=== PATIENT | female | born 1970 | race Caucasian/White ===

== ENCOUNTER 2017-10-22 12:41 | Emergency (ER) | payer SELFPAY ==
[~2017-10-22] VITALS: Ht 167.6 cm; Wt 86.0 kg
[~2017-10-22 12:41] MED LIST: ALBUTEROL S2.5 MG/.5 IN; AMOXICILLIN500 MG OR; AMOXICILLIN500 MG PO; CEPHALEXIN500 MG PO; CIPRO500 MG OR; CIPROFLOXACN500 MG PO; FLEXERIL OR; FLEXERIL10 MG PO; FLEXERIL5 MG PO; LORTAB 5 OR; MEDDOSEPAK OR; MEDDOSEPAK PO; MULTI VITAMIN; NAPROSYN375 MG PO; NAPROSYN500 MG OR; NAPROSYN500 MG PO; NO; NO HOME MEDS; NO MEDS; PREVACID30 M2 OR; PROAIR HFA IN; PROVENTIL HFA IN; ROBITUSS12 OR; ROBITUSSIN AC10 ML PO; ROBITUSSIN200 MG/10 PO; TORADOL PO; TRAMADOL HCL50 MG OR; ULTRAM50 M1 OR; ULTRAM50 M1 PO; VENTOLIN HFA IN; VENTOLIN HFA PO; ZOFRAN ODT8 MG SL; ZPAK PO
[2017-10-22 12:47] VITALS: BP 115/70
== END 2017-10-22 13:51 | disposition left against medical advice (07) | DRG 951 ==
LOC: ED 12:41 → LWOBS 13:50 → ED 13:51
DX: Z91.19 Patient's noncompliance with other medical treatment and regimen (principal)

== ENCOUNTER 2018-01-23 15:58 | Emergency (ER) | payer SELFPAY ==
[~2018-01-23] VITALS: Ht 167.6 cm; Wt 72.3 kg
[2018-01-23 16:35] LABS: HEMATOCRIT 40.7 % (37.0-47.0); HEMOGLOBIN 13.3 g/dl (12.0-16.0); IMMATURE GRANULOCYTES 0.2 % (0.0-1.0); MEAN CELL VOLUME 96.7 fL CALC (80.0-100.0); MEAN CORPUSCULAR HGB 31.6 pG CALC (26.0-32.0); MEAN CORPUSCULAR HGB CONC 32.7 g/L CALC (32.0-36.0); NEUT# 5.13 thou/uL (2.00-7.15); RED BLOOD COUNT 4.21 mill/uL (4.20-5.60); RED CELL DISTRI WIDTH 14.7 % (11.5-15.5)
[2018-01-23 16:58] LABS: INFLUENZA A NONE DETECTED (NONE DETECT); INFLUENZA B NONE DETECTED (NONE DETECT)
[2018-01-23] MEDS ORDERED: VENTOLIN HFA IN (17:09)
[2018-01-23] MEDS ORDERED: PREDNISONE10 MG PO (17:09)
[2018-01-23 17:17] VITALS: BP 132/75
== END 2018-01-23 17:21 | disposition home or self-care (01) | DRG 781 ==
LOC: ED 15:58
PROVIDERS: Family Medicine
DX: O26.891 Other specified pregnancy related conditions, first trimester (principal); J44.1 Chronic obstructive pulmonary disease with (acute) exacerbation; Z3A.08 8 weeks gestation of pregnancy; F17.200 Nicotine dependence, unspecified, uncomplicated; R06.02 Shortness of breath; R05 Cough; R07.9 Chest pain, unspecified

== ENCOUNTER 2018-06-07 06:51 | Emergency (ER) | payer SELFPAY ==
[~2018-06-07] VITALS: Ht 167.6 cm; Wt 70.4 kg
[~2018-06-07 06:51] MED LIST changes: +PREDNISONE10 MG PO
[2018-06-07 07:32] LABS: HEMATOCRIT 42.2 % (37.0-47.0); HEMOGLOBIN 14.2 g/dl (12.0-16.0); IMMATURE GRANULOCYTES 0.3 % (0.0-5.0); MEAN CELL VOLUME 96.1 fL CALC (80.0-100.0); MEAN CORPUSCULAR HGB 32.3 pG CALC (26.0-32.0); MEAN CORPUSCULAR HGB CONC 33.6 g/L CALC (32.0-36.0); NEUT# 5.37 thou/uL (2.00-7.15); RED BLOOD COUNT 4.39 mill/uL (4.20-5.60); RED CELL DISTRI WIDTH 14.3 % (11.5-15.5)
[2018-06-07 07:47] LABS: ALBUMIN 4.2 g/dL (3.2-5.0); ANION GAP 15 (6-22 (CALC)); BILIRUBIN, TOTAL 0.5 mg/dL (0.0-1.4); BUN 10 mg/dL (7-17); BUN/CREATININE RATIO 16 (12-20 (CALC)); CARBON DIOXIDE 25 mmol/l (22-30); CHLORIDE 104 mmol/l (95-108); CREATININE 0.6 mg/dL (0.5-1.0); GFR > 60 ML/MIN (>=60 (CALC)); GFR FOR AFR.AMER. > 60 ML/MIN (>=60 (CALC)); POTASSIUM 4.3 mmol/l (3.5-5.1); SGOT/AST 22 u/l (14-36); SGPT/ALT 26 u/l (9-52); SODIUM 140 mmol/l (137-146); TOTAL PROTEIN 7.2 g/dL (6.3-8.2)
[2018-06-07 07:51] LABS: ALKALINE PHOSPHATASE 68 u/l (38-126)
[2018-06-07 08:50] LABS: COCAINE POSITIVE (NEGATIVE)
[2018-06-07 08:51] LABS: BARBITURATES NEGATIVE (NEGATIVE); METHADONE NEGATIVE (NEGATIVE); OXCYCODONE NEGATIVE (NEGATIVE); TETRAHYDROCANNABIONOL NEGATIVE (NEGATIVE); TRICYLIC ANTIDEPRESSANTS NEGATIVE (NEGATIVE)
[2018-06-07] MEDS ORDERED: ZITHROMAX250 MG PO (08:59)
[2018-06-07] MEDS ORDERED: PROVENTIL HFA IN (08:59)
[2018-06-07] MEDS ORDERED: TORADOL PO (08:59)
[2018-06-07 09:18] VITALS: BP 118/68
== END 2018-06-07 09:18 | disposition home or self-care (01) | DRG 203 ==
LOC: ED 06:51
PROVIDERS: Emergency Medicine
DX: J40 Bronchitis, not specified as acute or chronic (principal); F17.290 Nicotine dependence, other tobacco product, uncomplicated; R09.1 Pleurisy; R05 Cough; R06.02 Shortness of breath

== ENCOUNTER 2018-09-08 13:05 | Inpatient (IN) | payer SELFPAY ==
[~2018-09-08] VITALS: Ht 167.6 cm; Wt 68.0 kg
[~2018-09-08 13:05] MED LIST changes: +ZITHROMAX250 MG PO
--- NOTE | 2018-09-08 13:16 | NUR ---
PT TO ROOM PER EMS
--- NOTE | 2018-09-08 13:40 | NUR ---
NITRO DRIP IN PROGRESS BP 103/71
[2018-09-08 13:49] LABS: HEMATOCRIT 43.1 % (37.0-47.0); IMMATURE GRANULOCYTES 0.3 % (0.0-5.0); MEAN CELL VOLUME 97.5 fL CALC (80.0-100.0); MEAN CORPUSCULAR HGB 31.7 pG CALC (26.0-32.0); MEAN CORPUSCULAR HGB CONC 32.5 g/L CALC (32.0-36.0); NEUT# 8.21 thou/uL (2.00-7.15); RED BLOOD COUNT 4.42 mill/uL (4.20-5.60); RED CELL DISTRI WIDTH 13.4 % (11.5-15.5)
--- NOTE | 2018-09-08 14:04 | NUR ---
MYRANDA CHAPPELL D/C'D PER .
[2018-09-08 14:36] LABS: ANION GAP 13 (6-22 (CALC)); BUN 16 mg/dL (7-17); BUN/CREATININE RATIO 26 (12-20 (CALC)); CARBON DIOXIDE 25 mmol/l (22-30); CHLORIDE 107 mmol/l (95-108); CREATININE 0.6 mg/dL (0.5-1.0); GFR > 60 ML/MIN (>=60 (CALC)); GFR FOR AFR.AMER. > 60 ML/MIN (>=60 (CALC)); POTASSIUM 4.2 mmol/l (3.5-5.1); SODIUM 140 mmol/l (137-146)
--- NOTE | 2018-09-08 15:03 | NUR ---
PT TO RADIOLOGY FOR CTA. ADVISED OF CURRENT POC.
[2018-09-08 15:25] LABS: INFLUENZA A NONE DETECTED (NONE DETECT); INFLUENZA B NONE DETECTED (NONE DETECT)
--- NOTE | 2018-09-08 15:28 | NUR ---
PT RETURNED FROM CT. ADVISED OF WAIT TIME. CONTINUE W/LOOSE CONGESTED COUGH. UV IV SITES HEALTHY. IV ABT CONTINUES.
--- NOTE | 2018-09-08 16:02 | NUR ---
SBAR PRINTED TO FLOOR
--- NOTE | 2018-09-08 16:10 | NUR ---
PT AWARE OF PENDING ADMIT TO MEDSURG. IV SITES HEALTHY. FLUSH EASILY. LOOSE PRODUCTIVE COUGH. AFEBRILE.
--- NOTE | 2018-09-08 16:31 | NUR ---
REPORT PROVIDED TO PACO ROSENBERG. ADVISED OF ALL MEDS, IV'S, HX AND PLAN OF CARE.
--- NOTE | 2018-09-08 16:43 | NUR ---
PT TO ROOM 279 VIA STRETCHER ON TELEMETRY VIA STRETCHER. IV SITES HEALTHY. NO APPARENT DISTRESS.
[2018-09-08 17:18] VITALS: BP 107/69
--- NOTE | 2018-09-08 18:03 | NUR ---
REPORT RECEIVED FROM GOPAL IN ED, PT ARRIVED ON UNIT VIA STRETCHER @ 1656, ALERT AND ORIENTED X 4, TRANSFERRED TO BED, C/O HEAD AND NECK ACHING PAIN @ 10/10, ORIENTED TO ROOM AND CALL TELLEZ, BROUGHT IN MEDICATION (NAPROXEN) BUT SAID SHE WILL SEND IT HOME WITH FAMILY AFTER SHE WAS INFORMED OF HOSPITAL'S POLICY CONCERNING HOME MEDS, ALL NEEDS/CONCERNS ADDRESSED. DR BARRIGA ROUNDED, DISCUSSED PLAN OF CARE WITH PT AND WROTE ORDERS, WILL CONTINUE TO MONITOR.
[2018-09-08 19:15] VITALS: BP 116/82
--- NOTE | 2018-09-08 20:49 | NUR ---
REPORT RECIEVED FROM OFFGOING NURSE. PT SITTING N BED WATCHING TV. DENIES PAIN. EXPLAINED THAT TROPONIN WILL BE DRAWN Q6 X3. PT VOICED UNDERSTANDING. BED IN LOW POSITON. CALL LIGHT WITHIN REACH.
[2018-09-09 00:39] VITALS: BP 100/66
--- NOTE | 2018-09-09 03:25 | NUR ---
PT RESTING IN BED. EYES CLOSED. NO SIGNS OF DISTRESS NOTED. BED IN LOWEST POSITION. CALL LIGHT WITHIN REACH.
[2018-09-09 04:00] VITALS: BP 113/71
[2018-09-09 05:32] LABS: IMMATURE GRANULOCYTES 0.3 % (0.0-5.0); MEAN CELL VOLUME 97.3 fL CALC (80.0-100.0); MEAN CORPUSCULAR HGB 31.6 pG CALC (26.0-32.0); MEAN CORPUSCULAR HGB CONC 32.5 g/L CALC (32.0-36.0); RED BLOOD COUNT 4.11 mill/uL (4.20-5.60); RED CELL DISTRI WIDTH 13.2 % (11.5-15.5)
[2018-09-09 05:43] LABS: ALBUMIN 3.6 g/dL (3.2-5.0); ALKALINE PHOSPHATASE 60 u/l (38-126); ANION GAP 15 (6-22 (CALC)); BILIRUBIN, TOTAL 0.2 mg/dL (0.0-1.4); BUN 14 mg/dL (7-17); BUN/CREATININE RATIO 29 (12-20 (CALC)); CARBON DIOXIDE 22 mmol/l (22-30); CHLORIDE 109 mmol/l (95-108); CREATININE 0.5 mg/dL (0.5-1.0); GFR > 60 ML/MIN (>=60 (CALC)); GFR FOR AFR.AMER. > 60 ML/MIN (>=60 (CALC)); MAGNESIUM 2.1 mg/dL (1.6-2.3); POTASSIUM 4.2 mmol/l (3.5-5.1); SGOT/AST 15 u/l (14-36); SODIUM 142 mmol/l (137-146); TOTAL PROTEIN 6.7 g/dL (6.3-8.2)
[2018-09-09 05:47] LABS: CHOLESTEROL HDL RATIO 2.8 (<4.4 (CALC))
[2018-09-09 06:02] LABS: PLATELET COUNT 307 thou/uL (130-400)
[2018-09-09 06:03] LABS: BAND 2 % (0-8); MANUAL DIFFERENTIAL YES
[2018-09-09 06:05] LABS: PLATELET ESTIMATE NORMAL
[2018-09-09 06:12] LABS: URINE BILIRUBIN - DIPSTICK NEGATIVE (NEGATIVE); URINE BLOOD DIPSTICK NEGATIVE (NEGATIVE); URINE CLARITY CLEAR; URINE COLOR YELLOW; URINE GLUCOSE - DIPSTICK 250 mg/dL (NEGATIVE); URINE KETONE NEGATIVE (NEGATIVE); URINE LEUK ESTERASE NEGATIVE (Negative); URINE NITRITE - DIPSTICK NEGATIVE (Negative); URINE PROTEIN - DIPSTICK TRACE mg/dL (NEG-TRACE); URINE SPECIFIC GRAVITY >=1.030; URINE UROBILINOGEN - DIPSTICK 0.2 E.U./dL (0.2)
[2018-09-09 07:35] VITALS: BP 113/56
--- NOTE | 2018-09-09 07:35 | NUR ---
ASSESSMENT IS COMPLETED: IV SITE IS FREE FROM REDNESS OR EDEMA. HR IS REG,PULSES ARE STRONG X4, ABD IS SOFT WITH ACTIVE BS. BREATH SOUNDS ARE WHEEZIGN AND COARSE. O2 @ 2LITERS WITH NC, TELE MONITOR IN PLACE, CALL TELLEZ WITH IN REACH,
--- NOTE | 2018-09-09 09:38 | NUR ---
PT C/O AVING DIARRHEA FOR 4 DAYS .
[2018-09-09 11:10] VITALS: BP 103/59
--- NOTE | 2018-09-09 11:36 | NUR ---
PT HAD A BM, LOOSE ALSO FOOD PARTICLES. SENDING DOWN TO LAB FOR TESTING.
--- NOTE | 2018-09-09 12:15 | NUR ---
PT IS RELAXING IN BED CONTINUED TO C/O HEADACHE. IV SITE IS FREE FROM REDNESS OR EDEMA. CONTINUE TO OBSERVE AND MONITOR.
[2018-09-09 13:30] LABS: C. DIFFICILE TOXIN A&B NEGATIVE (NEGATIVE)
--- NOTE | 2018-09-09 16:03 | NUR ---
PT IS RELAXING IN BED WITH NO DISTRESS NOTED, IV SITE IS FREE FROM REDNESS OR EDEMA.
[2018-09-09 16:20] VITALS: BP 105/61
--- NOTE | 2018-09-09 17:30 | NUR ---
IV SITE BECAME A LITTLE PUFFY, DISCONTINUED ATTEMPTED TO USE THE IV ON THE LEFT IT BECAME PUFFY HAD Catherine PLATT RN COME AN RESTART IN RAC WITH # 20. PT TOLERATED WELL
--- NOTE | 2018-09-09 19:45 | NUR ---
PATIENT RESTING IN BED WITH O2 VIA NASAL CANNULA IN PLACE AT 2LPM. AWAKE ALERT AND ORIENTEDX3. IV SITE TO RAC INTACT AND IS HEALTHY AT THIS TIME. TELE MONITOR IN PLACE. PATIENT TO RADIOLOGY VIA WHEELCHAIR FOR ECHO. WILL CONT TO MONITOR.
[2018-09-09 19:51] VITALS: BP 104/62
--- NOTE | 2018-09-09 21:00 | NUR ---
PATIENT RETURNED FROM ECHO VIA WHEELCHAIR AND ASSISTED TO THE BED. PATIENT WITH O2 VIA NASAL CANNULA IN PLACE. TELE MONITOR IN PLACE. IV SITE TO RIGHT AC INTACT-SITE IS HEALTHY AT THIS TIME. PATIENT MEDICATED FOR HEADACHE-10/10 ON PAIN SCALE WITH DILAUDID 2MG PO ORDERED. MEDICATED FOR NAUSEA WITH PHENERGAN 25MG IVP. SAFETY PRECAUTIONS REINFORCED. CALL LIGHT IN REACH. WILL CONT TO MONITOR.
--- NOTE | 2018-09-09 22:52 | NUR ---
NEB TX NOT GIVEN DUE TO INCREASED HR. IN NO APPARENT DISTRESS.
--- NOTE | 2018-09-09 23:29 | NUR ---
PATIENT APPEARS SLEEPING AT THIS TIME WITH O2 VIA NASAL CANNULA IN PLACE. TELE MONITOR IN PLACE. CALL LIGHT IN REACH. WILL CONT TO MONITOR.
[2018-09-10] VITALS (18 sets, daily range): BP systolic 90–118; BP diastolic 58–82
--- NOTE | 2018-09-10 04:00 | NUR ---
PATIENT RESTING IN BED WITH O2 VIA NASAL CANNULA IN PLACE. TELE MONITOR IN PLACE. SALINE TO RAC INTACT. NO COMPLAINTS AT THIS TIME. AM LABS WERE DRAWN. CALL LIGHT IN REACH. WILL CONT TO MONITOR.
[2018-09-10 05:20] LABS: HEMATOCRIT 36.5 % (37.0-47.0); IMMATURE GRANULOCYTES 0.6 % (0.0-5.0); MEAN CELL VOLUME 97.9 fL CALC (80.0-100.0); MEAN CORPUSCULAR HGB 32.2 pG CALC (26.0-32.0); MEAN CORPUSCULAR HGB CONC 32.9 g/L CALC (32.0-36.0); NEUT# 18.04 thou/uL (2.00-7.15); RED BLOOD COUNT 3.73 mill/uL (4.20-5.60); RED CELL DISTRI WIDTH 13.5 % (11.5-15.5)
[2018-09-10 05:30] LABS: ALBUMIN 3.3 g/dL (3.2-5.0); ALKALINE PHOSPHATASE 63 u/l (38-126); ANION GAP 11 (6-22 (CALC)); BILIRUBIN, TOTAL 0.2 mg/dL (0.0-1.4); BUN 11 mg/dL (7-17); BUN/CREATININE RATIO 25 (12-20 (CALC)); CARBON DIOXIDE 26 mmol/l (22-30); CHLORIDE 110 mmol/l (95-108); CREATININE 0.4 mg/dL (0.5-1.0); GFR > 60 ML/MIN (>=60 (CALC)); GFR FOR AFR.AMER. > 60 ML/MIN (>=60 (CALC)); MAGNESIUM 2.2 mg/dL (1.6-2.3); POTASSIUM 4.5 mmol/l (3.5-5.1); SGOT/AST 15 u/l (14-36); SODIUM 142 mmol/l (137-146); TOTAL PROTEIN 6.1 g/dL (6.3-8.2)
--- NOTE | 2018-09-10 07:10 | NUR ---
PT REPORT RECIEVED FROM PACO MORAN. PT SLEEPING IN BED. NO S/S OF DISTRESS. CALL LIGHT IN REACH. WILL CONTINUE TO MONITOR
--- NOTE | 2018-09-10 07:15 | NUR ---
PT REPORT RECIEVED FROM PACO MORAN. PT SLEEPING AT THIS TIME. NO S/S OF DISTRESS. CALL LIGHT IN REACH. WILL CONTINUE TO MONITOR
--- NOTE | 2018-09-10 08:36 | NUR ---
PT ASSESSMENT COMPLETE. A/O X3. SPEECH IS CLEAR. PRODUCTIVE COUGH NOTED. THICK OLIVERA SPUTUM. RESP EVEN AND UNLABORED LUNG SOUNDS DIMINISHED. TELE IN PLACE. PT C/O HEADACHE 8 OUT OF 10. AND CHEST PRESSURE. MEDICATED W/ 2 MG DILAUDID PO. PT ALSO COMPLAINS OF NAUSEA BUT REFUSES PHENERGAN PRESCRIBED. RELAXTION TECHNIQUES IN PLACE. BOWEL SOUNDS ACTIVE X4. STRONG RADIAL AND PEDAL PULSES.#20 RAC SL. FLUSHED AND PATENT. SITE APPEARS HEALTHY. POC DISCUSSED. SAFETY PRECAUTIONS IN PLACE. CALL LIGHT IN REACH. WILL CONTINUE TO MONITOR
--- NOTE | 2018-09-10 14:38 | NUR ---
PT C/O HEADACHE 10 OUT OF 10 ON PAIN SCALE. MEDICATED W/ 2MG DILAUDID PO. RELAXATION TECHNIQUES IN PLACE. CALL LIGHT IN REACH. WILL CONTINUE TO MONITOR
--- NOTE | 2018-09-10 15:13 | NUR ---
PT STATES HEADACHE HAS DECREASED TO A 8 OUT OF 10 ON PAIN SCALE. PT DENIES ANY FURTHER PAIN. RESP EVEN AND UNLABORED. TELE IN PLACE. CALL LIGHT IN REACH. WILL CONTINUE TO MONITOR
--- NOTE | 2018-09-10 19:00 | NUR ---
PT TO ICU BED 2 VIA BED FOR NEW ONSET AFIB. PT IS ALERT AND ORIENTED X3. SHIFT ASSESSMENT COMPLETED AT THIS TIME. IV PATENT X1. #22 PLACED IN LFA X1 ATTEMPT. PT TOLERATED WELL. PLAN OF CARE REVIEWED WITH PATIENT. PT NERVOUS AND STATES THAT SHE IS NAUSEATED. PHENERGAN GIVEN PER MAR. ORIENTED TO ROOM AND UNIT. CALL LIGHT IN REACH. WILL CONTINUE TO MONITOR.
--- NOTE | 2018-09-10 19:12 | NUR ---
NOTIFIED BY ED OF PT HR IN 170'S. STAT EKG ORDERED. PT. AFIB SUSTAINED IN 150'S. DR. ISRAEL NOTIFIED. ORDER FOR TRANSFER TO ICU, START LOADING DOSE AND GTT OF AMIODARONE IV. PT TRANSFERED TO ICU BED 2 VIA BED. REPORT GIVEN TO PACO METZ.
--- NOTE | 2018-09-10 20:35 | NUR ---
DR BARRIGA CALLED FOR AN UPDATE ON PATIENT. UPDATE PROVIDED. NEW ORDERS RECEIVED. DISUCSSED CAHNGES WITH PATIENT. PATIENT VERBALIZED UNDERSTANDING.
--- NOTE | 2018-09-10 20:46 | NUR ---
PT MEDICATED WITH HS MEDS PER JAN AND PRN DILAUDID PER JAN FOR HEADACHE. WILL CONTINUE TO MONITOR.
--- NOTE | 2018-09-10 21:05 | NUR ---
NOTIFIED DR BARRIGA OF HX OF COCAINE USE AND THAT PT STATES THAT SHE HAS NOT USED IN OVER A YEAR
--- NOTE | 2018-09-10 21:16 | NUR ---
NEB TX NOT GIVEN DUE TO INCREASED HR.
--- NOTE | 2018-09-10 21:30 | NUR ---
radiology into room to complete portable cxr
--- NOTE | 2018-09-10 22:08 | NUR ---
PT RESTING IN BED WITH EYES CLOSED. RESP ARE EVEN AND UNLABORED. NO DISTRESS NOTED. PT REMAINS AFIB RATE 100-130S. CALL LIGHT IN REACH. WILL CONTINUE TO MONITOR.
--- NOTE | 2018-09-10 23:02 | NUR ---
PT REQUESTED A SNACK. PT DENIES N/V AT THIS TIME. SNACK PROVIDED. WILL CONTINUE TO MONITOR.
[2018-09-11] VITALS (23 sets, daily range): BP systolic 79–121; BP diastolic 53–88
--- NOTE | 2018-09-11 00:24 | NUR ---
PT RESTING IN BED WITH EYES CLOSED. RESP ARE EVEN AND UNLABORED. NO DISTRESS NOTED. CALL LIGHT IN REACH. WILL CONTINUE TO MONITOR.
--- NOTE | 2018-09-11 02:19 | NUR ---
PT RESTING IN BED WITH EYES CLOSED. RESP ARE EVEN AND UNLABORED. NO DISTRESS NTOED. CALL LIGHT IN REACH. WILL CONTINUE TOMONTIOR
--- NOTE | 2018-09-11 03:50 | NUR ---
PT RESTING IN BED WITH EYES CLOSED. RESP ARE EVEN AND UNLABORED. NO DISTRESS NOTED. CALL LIGHT IN REACH. WILL CONTINUE TO MONITOR.
--- NOTE | 2018-09-11 04:36 | NUR ---
SMASH PIECER INTO DRAW AM LABS
--- NOTE | 2018-09-11 05:00 | NUR ---
PT UP TO BSC TO VOID AND THEN ASSISTED BACK TO BED. PT VOIDED 200CC OF DARK FOUL SMELLING URINE. PT ASSISTED BACK TO BED. CALL LIGHT IN REACH. WILL CONTINUE TO MONITOR.
[2018-09-11 05:13] LABS: HEMATOCRIT 37.1 % (37.0-47.0); HEMOGLOBIN 11.9 g/dl (12.0-16.0); IMMATURE GRANULOCYTES 0.7 % (0.0-5.0); MEAN CELL VOLUME 99.5 fL CALC (80.0-100.0); MEAN CORPUSCULAR HGB 31.9 pG CALC (26.0-32.0); MEAN CORPUSCULAR HGB CONC 32.1 g/L CALC (32.0-36.0); NEUT# 14.53 thou/uL (2.00-7.15); RED BLOOD COUNT 3.73 mill/uL (4.20-5.60); RED CELL DISTRI WIDTH 13.8 % (11.5-15.5)
[2018-09-11 05:37] LABS: ALBUMIN 3.2 g/dL (3.2-5.0); ALKALINE PHOSPHATASE 53 u/l (38-126); ANION GAP 10 (6-22 (CALC)); BUN 15 mg/dL (7-17); BUN/CREATININE RATIO 29 (12-20 (CALC)); CARBON DIOXIDE 26 mmol/l (22-30); CHLORIDE 112 mmol/l (95-108); CREATININE 0.5 mg/dL (0.5-1.0); GFR > 60 ML/MIN (>=60 (CALC)); GFR FOR AFR.AMER. > 60 ML/MIN (>=60 (CALC)); MAGNESIUM 2.3 mg/dL (1.6-2.3); POTASSIUM 4.6 mmol/l (3.5-5.1); SODIUM 144 mmol/l (137-146); TOTAL PROTEIN 5.8 g/dL (6.3-8.2)
[2018-09-11 05:44] LABS: SGOT/AST 67 u/l (14-36)
--- NOTE | 2018-09-11 05:58 | NUR ---
RT INTO GIVE AM NEB TREATMENT. AM MEDICATIONS GIVEN. MEDICATED WITH DILAUDID FOR HEADACHED. CALL LIGHT IN REACH. WILL CONTINUE TO MONITOR.
--- NOTE | 2018-09-11 08:13 | NUR ---
PT SEEN AWAKE, ALERT, ORIENTED X 3. AMIODARONE DRIP CONTINUES AT 16.5 ML/HR BUT PT REMAINS IN AFIB WITH RATE OF 80-110. LUNGS CLEAR BUT DIMINISHED. SKIN INTACT. NO DISTRESS NOTED.
--- NOTE | 2018-09-11 12:00 | NUR ---
NOTIFIED PT OF FAMILY MEMBER "Rafia" CALLED WANTING PT TO CALL HER BACK. UPON ENTERING THE ROOM, PT ASKED WHY HER MONITORING EQUIPMENT WAS BEEPING, I INFORMED HER THAT HER B/P CUFF WAS NOT INFLATING PROPERLY. PT THEN STATED SHE HAD STABBING CHEST PAIN. HR-122, B/P 121/88. 1201:RT NOTIFIED FOR STAT EKG.
--- NOTE | 2018-09-11 12:05 | NUR ---
DR. BARRIGA NOTIFIED OF PT COMPLAINTS. NEW ORDERS RECIEVED FOR NITRO Q 5MIN X 3, SUBLINGUAL, PRN AND STAT TROPONIN, LAB NOTIFIED.
--- NOTE | 2018-09-11 12:06 | NUR ---
RT AT BEDSIDE FOR EKG.
--- NOTE | 2018-09-11 12:20 | NUR ---
LAB AT BEDSIDE FOR TROPONIN LEVEL.
--- NOTE | 2018-09-11 13:30 | NUR ---
PT REPORTS HEADACHE PAIN, FOR WHICH SHE RECEIVED DILAUDID 2 MG PO. PAIN HAS COME DOWN TO AN 8, EARLIER 10. NO FURTHER COMPLAINTS OF CHEST DISCOMFORT.
--- NOTE | 2018-09-11 16:11 | NUR ---
PT SEEN BY DR FINK THIS AFTERNOON, NEW ORDERS RECEIVED. PT CONTINUES IN AFIB, HAS BEEN GIVEN LOPRESSOR. AMIODARONE CONTINUES UNTIL 1900. PT CONTINUES TO HAVE CHEST PRESSURE, WHICH HAS BEEN TRUE INTERMITTENTLY.
--- NOTE | 2018-09-11 18:10 | NUR ---
AMIODARONE DRIP STOPPED PER LOW BP IN THE 80s SYSTOLIC. MED WAS DUE TO BE STOPPED IN 2 HOURS ANYWAY, HAVING REACHED 24 HOUR ADMINISTRATION GIANCARLO. BP NOW 113/76.
--- NOTE | 2018-09-11 18:51 | NUR ---
PT PROVIDED DILAUDID PO FOR WHAT SHE SAYS IS CHEST PAIN THAT IMMEDIATELY CAUSES HER TO HAVE HEADACHE. VSS, UNKNOWN ETIOLOGY.
--- NOTE | 2018-09-11 19:00 | NUR ---
REPORT FROM PACO BARBOUR. ASSUMED PT. CARE.
--- NOTE | 2018-09-11 19:30 | NUR ---
ZITHROMAX COMPLETE AT THIS TIME. NO REACTIONS NOTED. IV FLUSHED.
--- NOTE | 2018-09-11 20:10 | NUR ---
PT. STABLE. AWAKE, ALERT, ORIENTED X 3. SKIN WARM AND DRY. AFEBRILE. BOWEL SOUNDS PRESENT IN ALL QUADS. C/O 8/10 NECK/HEAD PAIN. PT. STATES WITH HX OF CHRONIC NECK PROBLEMS. ASKING IF ITS TIME FOR HER DILAUDID AGAIN. PT. INFORMED IT'S EVERY 6 HOURS AND SHE HAD THE MED AT 18:30. UPDATED THAT SHE COULD NOT HAVE IT AGAIN UNTIL PAST MIDNIGHT. IBARRA. ELIZABETH. DIMINISHED TO BASES BILAT. SLIGHTLY DIMINISHED TO UPPERS BILAT. A-FIB RATE IN THE 90-120'S. WILL MONITOR FOR NEEDED PUSH ADMINISTRATION ORDERED. NO DISTRESS. SITTING UP IN BED, EVEN AND UNLABORED RESPS.
--- NOTE | 2018-09-11 21:30 | NUR ---
PT. ASSISTED TO BSC. PT. TOLERATED WELL. PT. MEDICATED FOR PAIN AND WITH HS MEDICATIONS FOR BP/AGGITATION PER PHYSICIAN ORDERS. WILL CONTINUE TO ASSESS FOR MEDICATION EFFECTIVENESS.
--- NOTE | 2018-09-11 23:22 | NUR ---
PT. RESTING IN BED IN NO DISTRESS. RESPS REMAIN EVEN AND UNLABORED. HR REMAINS A-FIB IN THE 80-120'S. PT. STATES HER PAIN LEVEL IN NOW 05/14. DENIES OTHER NEEDS. WILL CONTINUE TO MONITOR.
[2018-09-12] VITALS (17 sets, daily range): BP systolic 95–142; BP diastolic 54–89
--- NOTE | 2018-09-12 00:42 | NUR ---
PT. RESTING ON LT. SIDE IN NO DISTRESS. RESPS EVEN AND UNLABORED. EYES CLOSED. PT. REMAINS IN A-FIB WITH RATE IN THE 80-110'S. BP STABLE.
--- NOTE | 2018-09-12 02:26 | NUR ---
PT. CONTINUES TO REST IN BED IN NO DISTRESS. BP/HR REMAINS STABLE. PT. REMAINS IN A-FIB NO DISTRESS. CALL LIGHT REMAINS WITHIN REACH. WILL CONTINUE TO MONITOR.
--- NOTE | 2018-09-12 03:50 | NUR ---
LAB AT BEDSIDE AT THIS TIME. PT. REMAINS EASILY AROUSABLE. ALERT, ORIENTED X 3. PT. STATES PAIN IS CONTROLLED AT THIS TIME. STATES 6/, DENIES NEED FOR PAIN MEDS. PT. REMAINS IN A-FIB, RATE CONTROLLED BETWEEN 68-100. RT. AC LINE DISCONTINUED AT THIS TIME IT WAS FOUND DISLODGED. BANDAGE APPLIED.
[2018-09-12 04:04] LABS: HEMATOCRIT 36.6 % (37.0-47.0); HEMOGLOBIN 11.7 g/dl (12.0-16.0); IMMATURE GRANULOCYTES 1.4 % (0.0-5.0); MEAN CELL VOLUME 100.3 fL CALC (80.0-100.0); MEAN CORPUSCULAR HGB 32.1 pG CALC (26.0-32.0); NEUT# 12.24 thou/uL (2.00-7.15); RED BLOOD COUNT 3.65 mill/uL (4.20-5.60); RED CELL DISTRI WIDTH 13.9 % (11.5-15.5)
[2018-09-12 04:11] LABS: ALKALINE PHOSPHATASE 52 u/l (38-126); ANION GAP 10 (6-22 (CALC)); BUN 20 mg/dL (7-17); BUN/CREATININE RATIO 28 (12-20 (CALC)); CARBON DIOXIDE 25 mmol/l (22-30); CHLORIDE 112 mmol/l (95-108); CREATININE 0.7 mg/dL (0.5-1.0); GFR > 60 ML/MIN (>=60 (CALC)); GFR FOR AFR.AMER. > 60 ML/MIN (>=60 (CALC)); MAGNESIUM 2.2 mg/dL (1.6-2.3); POTASSIUM 4.7 mmol/l (3.5-5.1); SGOT/AST 32 u/l (14-36); SODIUM 142 mmol/l (137-146); TOTAL PROTEIN 5.7 g/dL (6.3-8.2)
--- NOTE | 2018-09-12 05:07 | NUR ---
[place] WITH [place] [facility] [place] DENIES COMPLAINTS OF PAIN OR NEED. CALL LIGHT REMAINS WITH REACH. BP CUFF REPOSITIONED AT THIS TIME. WILL CONTINUE TO MONITOR.
--- NOTE | 2018-09-12 08:09 | NUR ---
PT SLEEPING UPON INITIAL INTERACTION, HR 80s, AFIB. PT MEDICATED RECENTLY FOR PAIN RELIEF. NO DISTRESS NOTED.
--- NOTE | 2018-09-12 11:06 | NUR ---
PT PROVIDED WITH TORADOL PER RETURN OF HEADACHE, 08/14. RHYTHM CONTINUES TO BE AFIB, RATE 87.
--- NOTE | 2018-09-12 11:18 | NUR ---
DR BARRIGA IN TO SEE PT AT THIS TIME. RHYTHM CHANGE NOTED, NOW SINUS 90. PT PROVIDES SPUTUM SPECIMEN FOR EVAL, SEEN BLACK.
--- NOTE | 2018-09-12 16:52 | NUR ---
PT ENJOYS VISITORS THIS AFTERNOON. PT HAS BEEN TAKEN TO MED/SURG WHERE SHE WAS ABLE TO SHOWER. PT REMAINS IN SINUS RHYTHM, 80s. AT BEDSIDE, GUEST TRAY ORDERED FOR HIM.
--- NOTE | 2018-09-12 18:50 | NUR ---
REPORT FROM PACO BARBOUR. ASSUMED PT. CARE.
--- NOTE | 2018-09-12 19:40 | NUR ---
PT. RESTING ON RT. SIDE IN NO DISTRESS. PT. EASILY AROUSABLE TO LIGHT VERBAL STIMULI. RESPS EVEN AND UNLABORED. SKIN WARM AND DRY. AFEBRILE. SIG OTHER AT BEDSIDE AT THIS TIME. PT. ALERT, ORIENTED X 3. PT. STATES WORK OF BREATHING HAS IMPROVED. REMAINS DIMINISHED/CLEAR TO UPPERS AND DIMINISHED TO BASES. PT. REPORTS NORMAL BM TODAY. BOWEL SOUNDS POSTIIVE IN ALL 4 QUADS. C/O 10/10 HEADACHE AT THIS TIME. PT. IN NSR AT THIS TIME IN THE 70-80'S. NO DISTRESS NOTED.
--- NOTE | 2018-09-12 22:07 | NUR ---
RT AT BEDSIDE TO ADMINISTER NEB TREATMENT. PT. REMAINS STABLE IN NSR. NO DISTRESS. SIG OTHER REMAINS AT BEDSIDE.
--- NOTE | 2018-09-12 22:29 | NUR ---
PT. PROVIDED WITH TURKEY SANDWICH, JELLO, AND ENSURE AT THIS TIME. PT. THANKFUL FOR ITEMS. WILL CONTINUE TO MONITOR.
[2018-09-13] VITALS (7 sets, daily range): BP systolic 122–141; BP diastolic 63–82
--- NOTE | 2018-09-13 00:19 | NUR ---
PT. RESTING IN BED IN NO DISTRESS. CALL LIGHT REMAINS WITHIN REACH. SIG OTHER PROVIDED WITH BLANKET PER REQUEST. REMAINS IN SR WITH RATE IN THE 80'S. WILL CONTINUE TO ASSESS.
--- NOTE | 2018-09-13 04:36 | NUR ---
PT. TO BSC. REMAINS IN NO DISTRESS AND IN NSR IN THE 70-80'S. AMBULATORY WITH STEADY GAIT. C/O 08/14 HEADACHE AT THIS TIME. MEDICATED PER PHYSICIAN ORDERS.
--- NOTE | 2018-09-13 05:51 | NUR ---
PT. RESTING IN BED IN NO DISTRESS. EASILY AROUSABLE TO LIGHT VERBAL STIMULI. REMAINS ORIENTED X 3. SKIN WARM AND DRY. PT. HR REMAINS CONTROLLED AND IN A-FIB.
[2018-09-13 06:01] LABS: HEMATOCRIT 36.9 % (37.0-47.0); MEAN CELL VOLUME 98.9 fL CALC (80.0-100.0); MEAN CORPUSCULAR HGB 32.2 pG CALC (26.0-32.0); MEAN CORPUSCULAR HGB CONC 32.5 g/L CALC (32.0-36.0); NEUT# 12.91 thou/uL (2.00-7.15); RED BLOOD COUNT 3.73 mill/uL (4.20-5.60); RED CELL DISTRI WIDTH 13.3 % (11.5-15.5)
[2018-09-13 06:11] LABS: ALBUMIN 3.1 g/dL (3.2-5.0); ALKALINE PHOSPHATASE 48 u/l (38-126); ANION GAP 11 (6-22 (CALC)); BILIRUBIN, TOTAL 0.1 mg/dL (0.0-1.4); BUN 24 mg/dL (7-17); BUN/CREATININE RATIO 40 (12-20 (CALC)); CARBON DIOXIDE 28 mmol/l (22-30); CHLORIDE 104 mmol/l (95-108); CREATININE 0.6 mg/dL (0.5-1.0); GFR > 60 ML/MIN (>=60 (CALC)); GFR FOR AFR.AMER. > 60 ML/MIN (>=60 (CALC)); POTASSIUM 4.8 mmol/l (3.5-5.1); SGOT/AST 21 u/l (14-36); SODIUM 139 mmol/l (137-146); TOTAL PROTEIN 5.8 g/dL (6.3-8.2)
--- NOTE | 2018-09-13 06:17 | NUR ---
PT. MEDICATED PER PHYSICIAN ORDERS. STATES HEADACHE IS AT 6/10 AT THIS TIME. CALL LIGHT REMAINS WITHIN REACH. WILL CONTINUE TO ASSESS.
--- NOTE | 2018-09-13 07:08 | NUR ---
CALLED TO ROOM WHEN PT PRESSED CALLBELL. PT STATES SHE NEEDS DILAUDID FOR A REALLY BAD HEADACHE AND PEPTO BYSMAL FOR DIARRHEA. ASK PT WHEN SHE LAST HAD DIARRHEA, PT STATES A LITTLE WHILE AGO IN THE BSC. NO BM IN BSC, ONLY A LITTLE URINE & TP. AUTOMOTIVE CUSTOMER EXPERIENCE ADVISOR REPORTED A FORMED STOOL YESTERDAY BUT DENIED ANY BM OVER NIGHT. PT REMINDED SHE JUST RECVED DILAUDID AT 0430 AND HAS TO WAIT 6 HOURS BEFORE SHE IS ALLOWED TO HAVE IT AGAIN. PTS EYES ARE BARELY OPEN AND PT IS SLURRING WORDS. BREATHING IS EVEN/UNLABORED. LUNG SOUNDS CLEAR ON RIGHT SIDE, WHEEZES ON LEFT SIDE. ABD SOFT/NONTENDER, ACTIVE BS. DENIES N/V. EYES PERRLA @2. PULSES STRONG. UZAIR HOSE IN PLACE. STRONG SENIOR WATER RESOURCES ENGINEER. IBARRA. DENIES URINARY ABNORMALITY. PT IS A&Ox3. BOYFRIEND AT BEDSIDE.
--- NOTE | 2018-09-13 07:32 | NUR ---
PT SITTING UP IN BED, EATING BREAKFAST. TALKING TO HER MOM ON THE PORTABLE PHONE.
--- NOTE | 2018-09-13 08:10 | NUR ---
SPEECH "NORMAL" AT THIS TIME. PT REFUSED CURTAINS OPEN. REFUSED TO GET UP TO RECLINER, BOYFRIEND SITTING IN RECLINER. PT LAYING ON LEFT SIDE, GOING BACK TO SLEEP. ASKED FOR ANOTHER MILK. DENIED BATH & BRUSH TEETH, STATES SHE WANTS TO TAKE A SHOWER WHEN HER MOM GETS HERE.
--- NOTE | 2018-09-13 08:56 | NUR ---
HAD TO ASK BOYFRIEND TO MOVE- PT GOT OUT OF BED TO USE BSC AND HAD TO LITERALLY CLIMB OVER HIM TO GET TO THE WALKER. PT SLIGHTLY UNSTEADY GAIT. NICOTINE PATCH PLACED ON LEFT UPPER ARM. COULD NOT FIND OLD PATCH TO REMOVE. PT THINKS IT RUBBED OFF IN THE SHEETS.
--- NOTE | 2018-09-13 09:34 | NUR ---
RT @BEDSIDE FOR BREATHING TREATMENT. PT LAYING IN BED, WATCHING TV. BOYFRIEND IN RECLINER. BREATHING IS EVEN/UNLABORED. NO COUGH SINCE START OF SHIFT. TELE, NSR 278. NO S/S OF DISTRESS. CALLBELL W/IN REACH.
--- NOTE | 2018-09-13 09:58 | NUR ---
EMILY, GOLF CART MECHANIC, @BEDSIDE WITH PT.
--- NOTE | 2018-09-13 10:18 | NUR ---
AUXILLARY CALLED TO ESCORT PTS BOYFRIEND OUT OF HOSPITAL. PT STATES SECURITY HAD TO ESCORT HIM UPSTAIRS BC HE WAS SCARE HE WAS GOING TO GET LOST.
--- NOTE | 2018-09-13 10:23 | NUR ---
DR BARRIGA @BEDSIDE, ASSESSING PT, DISCUSSING TEST RESULTS. & POC. FARZANEH FELIPE, BEDSIDE WELL.
--- NOTE | 2018-09-13 10:30 | NUR ---
O2 TURNED OFF FOR AMBULATION OXYGEN TEST.
--- NOTE | 2018-09-13 10:46 | NUR ---
PT FREQUENTLY ON PORTABLE PHONE. O2 97% ON RA. NO COUGHING. NO S/S OF DISTRES.
--- NOTE | 2018-09-13 11:09 | NUR ---
PT AMBULATED FOR 6 MINS AROUND UNIT. PT STATED SHE WAS SHAKING ALL OVER & HAD CHEST PAIN. WHEN PT ADVISED THAT SHE COULD NOT BE OFF UNIT/TELE FOR A SHOWER IF SHE HAD CHEST PAIN, PAIN WENT AWAY QUICKLY. PT STARTED AT 98% ROOM AIR. AFTER WALKING AROUND THE UNIT FOR 6 MINUTES WITH WALKER, PT WAS 97% ON ROOM AIR. PT DID COUGH x1 WHILE WALKING. DR BARRIGA NOTIFIED. PT ABLE TO COMMUNICATE W/OUT DISTRESS WHILE AMBULATING. STATES SHE LIVES WITH HER MOTHER & HAS 15 GRANDCHILDREN.
--- NOTE | 2018-09-13 11:26 | NUR ---
PTS SISTER @BEDSIDE. PTS BREATHING EVEN/UNLABORED. DENIES PAIN AT THIS TIME. WILL CONTINUE TO MONITOR.
--- NOTE | 2018-09-13 11:42 | NUR ---
PT SITTING UP IN BED, EATING LUNCH.
--- NOTE | 2018-09-13 11:44 | NUR ---
DR BARRIGA @BEDSIDE, DISCUSSING DC WITH PT.
--- NOTE | 2018-09-13 11:58 | NUR ---
PT INFORMED x3 THAT SHE NEEDS TO STAY ON MONITOR UNTIL SHE RECVS DC INSTRUCTIONS SO I CAN CONTINUE TO MONITOR AND GET DC INSTRUCTIONS. WALKED INTO ROOM AFTER TELE MACHINE ALARMING TO FIND PT FULLY DRESSED AND REMOVED ALL MONITORS. PT STATES SHE IS JUST READY TO GO. REFUSING DC V/S.
--- NOTE | 2018-09-13 12:14 | NUR ---
FABRICE, FROM [facility], @BEDSIDE WITH PT.
[2018-09-13] MEDS ORDERED: SEREVENT D50 MCG/DOS INHW/SPAC (12:25)
--- NOTE | 2018-09-13 13:01 | NUR ---
PT EDUCATED ON DC INSTRUCTIONS, INCLUDING STOP SMOKING & MEDICATION CHANGES. PT DENIED QUESTIONS. IV DC'D, TIP INTACT, DRESSING APPLIED. PT HAD GATHERED ALL BELONGINGS INCLUDING HOSPITAL TOWELS/WASH CLOTHES.
--- NOTE | 2018-09-13 13:10 | NUR ---
PT TRANSPORTED TO FRIEND WAITING IN CAR AT ENTRANCE BY BY [employer] SUP IN STABLE CONDITION. PT CHOOSE TO BE DC NOW AND F/UP WITH [facility] ABOUT RX INSTEAD OF WAITING HERE FOR THEM.
[2018-09-13] MEDS ORDERED: CLINDAMYCIN300 M1 PO (14:15)
[2018-09-13] MEDS ORDERED: VENTOLIN HFA IN (14:17)
[2018-09-13] MEDS ORDERED: XARELTO20 MG PO (14:17)
[2018-09-13] MEDS ORDERED: PREDNISONE10 MG PO (14:18)
== END 2018-09-13 13:10 | disposition home or self-care (01) | DRG 190 ==
LOC: ED 13:05 → ED-I 15:47 → ED 16:00 → MS2 16:01 → ICU 17:22 → MS2 17:22 → ICU 09-10 19:00
PROVIDERS: Family Medicine; ADMIT Internal Medicine Nephrology; ATTEND Internal Medicine Nephrology
DX: J44.1 Chronic obstructive pulmonary disease with (acute) exacerbation (principal); J18.9 Pneumonia, unspecified organism; F17.213 Nicotine dependence, cigarettes, with withdrawal; I10 Essential (primary) hypertension; J44.0 Chronic obstructive pulmonary disease with (acute) lower respiratory infection; I48.0 Paroxysmal atrial fibrillation; D63.8 Anemia in other chronic diseases classified elsewhere; F14.11 Cocaine abuse, in remission; R79.89 Other specified abnormal findings of blood chemistry; F41.9 Anxiety disorder, unspecified
CPT/HCPCS: J0282; J1650; Q9967

== ENCOUNTER 2019-08-06 10:57 | Emergency (ER) | payer SELFPAY ==
[~2019-08-06] VITALS: Ht 167.6 cm; Wt 59.1 kg
[~2019-08-06 10:57] MED LIST changes: +CLINDAMYCIN300 M1 PO; +SEREVENT D50 MCG/DOS INHW/SPAC; +XARELTO20 MG PO
[2019-08-06 11:21] LABS: HEMATOCRIT 42.1 % (37.0-47.0); HEMOGLOBIN 13.9 g/dl (12.0-16.0); IMMATURE GRANULOCYTES 0.3 % (0.0-5.0); NEUT# 4.74 thou/uL (2.00-7.15); RED BLOOD COUNT 4.34 mill/uL (4.20-5.60); RED CELL DISTRI WIDTH 14.5 % (11.5-15.5)
[2019-08-06 11:38] LABS: ALKALINE PHOSPHATASE 60 u/l (38-126); ANION GAP 13 (6-22 (CALC)); BUN 16 mg/dL (7-17); BUN/CREATININE RATIO 27 (12-20 (CALC)); CARBON DIOXIDE 27 mmol/l (22-30); CHLORIDE 102 mmol/l (95-108); CREATININE 0.6 mg/dL (0.5-1.0); GFR > 60 ML/MIN (>=60 (CALC)); GFR FOR AFR.AMER. > 60 ML/MIN (>=60 (CALC)); POTASSIUM 4.1 mmol/l (3.5-5.1); SGOT/AST 21 u/l (14-36); SODIUM 138 mmol/l (137-146)
[2019-08-06 11:46] LABS: ALBUMIN 4.4 g/dL (3.2-5.0); BILIRUBIN, TOTAL 0.5 mg/dL (0.0-1.4); TOTAL PROTEIN 7.2 g/dL (6.3-8.2)
[2019-08-06 11:50] LABS: MYOGLOBIN 34 ng/mL (0 - 62)
[2019-08-06] MEDS ORDERED: PREDNISONE50 MG PO (13:10)
[2019-08-06 13:23] VITALS: BP 110/83
== END 2019-08-06 13:28 | disposition home or self-care (01) | DRG 192 ==
LOC: ED 10:57
PROVIDERS: Family Medicine
DX: J44.1 Chronic obstructive pulmonary disease with (acute) exacerbation (principal); I10 Essential (primary) hypertension

== ENCOUNTER 2019-09-17 08:33 | Emergency (ER) | payer SELFPAY ==
[~2019-09-17] VITALS: Ht 167.6 cm; Wt 60.0 kg
[~2019-09-17 08:33] MED LIST changes: +PREDNISONE50 MG PO
[2019-09-17] MEDS ORDERED: KEFLEX500 M1 PO (09:51)
[2019-09-17 10:14] VITALS: BP 120/81
== END 2019-09-17 10:08 | disposition home or self-care (01) | DRG 605 ==
LOC: ED 08:33
DX: S91.131A Puncture wound without foreign body of right great toe without damage to nail, initial encounter (principal); L03.031 Cellulitis of right toe; W45.0XXA Nail entering through skin, initial encounter; I10 Essential (primary) hypertension; J44.9 Chronic obstructive pulmonary disease, unspecified; F17.219 Nicotine dependence, cigarettes, with unspecified nicotine-induced disorders; Z23 Encounter for immunization

== ENCOUNTER 2019-10-21 10:13 | Observation (INO) | payer SELFPAY ==
[~2019-10-21] VITALS: Ht 167.6 cm; Wt 57.3 kg
[~2019-10-21 10:13] MED LIST changes: +KEFLEX500 M1 PO
--- NOTE | 2019-10-21 10:33 | NUR ---
PT UNABLE TO REMEMBER THE REST OF HER MEDICATIONS BESIDE ZARELTO.
--- NOTE | 2019-10-21 10:47 | NUR ---
PTS HEART RATE DROPPED TO 39, EKG IMMEDIATELY OBTAINED, NOTIFIED. PT REMAINS ALERT/ORIENTED X3, DAUGHTER AT BEDSIDE.
--- NOTE | 2019-10-21 11:00 | NUR ---
PT RESTING QUIETLY ON STRETCHER, WATCHING TV, STATES FEELS MUCH BETTER AFTER NEB TREATMENT
[2019-10-21 11:05] LABS: HEMOGLOBIN 13.6 g/dl (12.0-16.0); IMMATURE GRANULOCYTES 0.3 % (0.0-5.0); MEAN CORPUSCULAR HGB 32.4 pG CALC (26.0-32.0); MEAN CORPUSCULAR HGB CONC 32.4 g/L CALC (32.0-36.0); NEUT# 3.85 thou/uL (2.00-7.15); RED BLOOD COUNT 4.2 mill/uL (4.20-5.60)
[2019-10-21 11:08] LABS: ANION GAP 13 (6-22 (CALC)); BUN 13 mg/dL (7-17); BUN/CREATININE RATIO 20 (12-20 (CALC)); CARBON DIOXIDE 23 mmol/l (22-30); CHLORIDE 106 mmol/l (95-108); CREATININE 0.7 mg/dL (0.5-1.0); GFR > 60 ML/MIN (>=60 (CALC)); GFR FOR AFR.AMER. > 60 ML/MIN (>=60 (CALC)); POTASSIUM 4.6 mmol/l (3.5-5.1); SODIUM 138 mmol/l (137-146)
--- NOTE | 2019-10-21 12:10 | NUR ---
DENIES CHEST PAIN AT THIS TIME
--- NOTE | 2019-10-21 12:12 | NUR ---
PT GIVEN WARM BLANKETS , RESTING QUIETLY ON STRETCHER, STATES FEELS BETTER THAN WHEN SHE CAME IN. SATS 97-98%.
--- NOTE | 2019-10-21 13:03 | NUR ---
SBAR PRINTED TO FLOOR
[2019-10-21 13:26] LABS: BARBITURATES NEGATIVE (NEGATIVE); COCAINE POSITIVE (NEGATIVE); METHADONE NEGATIVE (NEGATIVE); OXCYCODONE NEGATIVE (NEGATIVE); TETRAHYDROCANNABIONOL NEGATIVE (NEGATIVE); TRICYLIC ANTIDEPRESSANTS NEGATIVE (NEGATIVE)
--- NOTE | 2019-10-21 13:37 | NUR ---
WAITING FOR ORDERS TO BE PLACED FOR PT. SANDWICH AND WATER GIVEN TO PT PER PT REQUEST.
--- NOTE | 2019-10-21 14:17 | NUR ---
PT ARRIVED TO MED/SURG ROOM 272 IN STABLE CONDITION VIA WHEELCHAIR ACCOMPANIED BY PACO ROBERT;PT AMBULATED TO STANDING SCALE AND BEDSIDE WITH A STEADY GAIT,WT AND VS OBTAINED;PT A&O X3,ORIENTED TO ROOM AND CALL LIGHT SYSTEM;PT REPORTS NAUSEA,FEVER AND DIARRHEA X3 DAYS;PT REPORTS GENERALIZED PAIN CURRENTLY RATING 8/10 ON THE PAIN SCALE,MEGAN,ANRP NOTIFIED OF PAIN MEDICATION REQUEST;RESPIRATIONS EVEN AND UNLABORED ON RA,COARSE LUNG SOUNDS NOTED;PRODUCTIVE COUGH,YELLOW/SMALL AND THICK;ABDOMEN SOFT ON PALPATION AND ACTIVE IN ALL 4 QUADRANTS,LAST BM 10/19/19;STRONG PEDAL PULSES;SKIN INTACT;TELE MONITORING IN PLACE;#20G TO LAC FLUSHED AND PATENT,SITE APPEARS HEALTHY;FALL AND ALLERGY BAND APPLIED TO RIGHT ARM;DROPLET PRECAUTIONS INITIATED AT THIS TIME FOR POSITIVE STREP;PT DENIES ANY ADDITONAL NEEDS AT THIS TIME AND IS ENCOURAGED TO CALL FOR ASSISTANCE IF NEEDED;FALL PRECAUTIONS IN PLACE WITH BED IN THE LOWEST POSITION AND CALL LIGHT IN REACH;WILL CONTINUE TO MONITOR
--- NOTE | 2019-10-21 14:21 | NUR ---
PT REPORT GIVEN AND PT TAKEN TO FLOOR WITH TELEMENTRY AND W/C
[2019-10-21 14:23] VITALS: BP 128/80
--- NOTE | 2019-10-21 15:00 | NUR ---
PT MEDICATED WITH TORADOL 30MG IVP FOR GENERALIZED PAIN RATING 9/10 ON THE PAIN SCALE;RESPIRATIONS REMAIN EVEN AND UNLABORED AT THIS TIME;IV ABX ADMINISTERED TO LAC;TELE MONITORING IN PLACE;NICOTINE PATCH APPLIED TO RIGHT ARM;PT DENIES ANY ADDITIONAL NEEDS;FALL PRECAUTIONS IN PLACE WITH CALL LIGHT IN REACH;WILL CONTINUE TO MONITOR
--- NOTE | 2019-10-21 17:08 | NUR ---
PT REPORTS GENERALIZED PAIN RATING 9/10 ON THE PAIN SCALE AND REQUESTS PAIN MEDICATION,PT MEDICATED WITH PRN LORTAB 5/325MG PO AT THIS TIME;WILL CONTINUE TO MONITOR FOR EFFECTIVENESS
--- NOTE | 2019-10-21 19:00 | NUR ---
RECEIVED REPORT FROM NURSE BRADLEY, PATIENT AWAKE WITH SHALLOW UNLABORED BREATHING, CALL LIGHT AT REACH.
[2019-10-21 20:02] VITALS: BP 135/82
--- NOTE | 2019-10-21 21:00 | NUR ---
PATIENT ALERT AND ORIENTED X3 ABLE TO MAKE NEEDS KNONW, WITH SALINE LOCK ON LAC PATENT AND FLUSHES WELL, NOTED TO HAVE COARSE LUNG SOUNDS ON ALL LUNG MCRAE, PRODUCTIVE COUGH YELLOW IN COLOR, WITH SHALLOW, UNLABORED BREATHING CALL LIGHT AT REACH.
[2019-10-22] VITALS (7 sets, daily range): BP systolic 108–122; BP diastolic 62–74
--- NOTE | 2019-10-22 00:27 | NUR ---
PATIENT C/O GENERAL BODY PAIN MEDICATED WITH PRN LORTAB WILL REEVALUATE.
--- NOTE | 2019-10-22 05:00 | NUR ---
PATIENT AWAKE AT THIS TIME, C/O GEN BODY PAIN PRN TORADOL GIVEN WITH EFFECT.cURRENTLY RESTING IN BED, CALL LIGHT AT REACH.
[2019-10-22 06:03] LABS: HEMATOCRIT 37.5 % (37.0-47.0); HEMOGLOBIN 12.2 g/dl (12.0-16.0); MEAN CELL VOLUME 99.5 fL CALC (80.0-100.0); MEAN CORPUSCULAR HGB 32.4 pG CALC (26.0-32.0); MEAN CORPUSCULAR HGB CONC 32.5 g/L CALC (32.0-36.0); RED BLOOD COUNT 3.77 mill/uL (4.20-5.60); RED CELL DISTRI WIDTH 13.9 % (11.5-15.5)
--- NOTE | 2019-10-22 07:05 | NUR ---
REPORT RECEIVED FROM PACO BOOTH;PT RESTING IN SEMI FOWLERS POSITION;INTRODUCED SELF TO PT AND POC DISCUSSED;RESPIRATIONS EVEN AND UNLABORED ON RA;PT DENIES ANY CURRENT PAIN OR NEEDS;TELE MONITORING IN PLACE;PT ENCOURAGED TO CALL FOR ASSISTANCE IF NEEDED;FALL PRECAUTIONS IN PLACE WITH CALL LIGHT IN REACH;WILL CONTINUE TO MONITOR
--- NOTE | 2019-10-22 08:20 | NUR ---
PT RESTING IN SEMI FOWLERS POSITION,A&O X3;VS OBTAINED AND ASSESSMENT COMPLETED;PT REPORTS GENERALIZED PAIN RATING 9/10 ON THE PAIN SCALE AND REQUESTS PAIN MEDICATION,PT MEDICATED WITH PRN LORTAB 5/325MG PO AT THIS TIME;RESPIRATIONS EVEN AND UNLABORED ON RA,DIMINISHED LUNG SOUNDS NOTED;ABDOMEN SOFT ON PALPATION AND ACTIVE IN ALL 4 QUADRANTS;STRONG PEDAL PULSES;SKIN INTACT;TELE MONITORING IN PLACE;#20G TO LAC FLUSHED AND PATENT,SITE APPEARS HEALTHY;PT DENIES ANY ADDITIONAL NEEDS AT THIS TIME AND IS ENCOURAGED TO CALL FOR ASSISTANCE IF NEEDED;FALL PRECAUTIONS IN PLACE WITH CALL LIGHT IN REACH;WILL CONTINUE TO MONITOR
--- NOTE | 2019-10-22 12:40 | NUR ---
PT RESTING IN SEMI FOWLERS POSITION WITH MOTHER AT BEDSIDE;RESPIRATIONS EVEN AND UNLABORED ON RA;PT DENIES ANY CURRENT PAIN OR NEEDS;MIRLAX AND MOM WITH PRUNE JUICE ADMINISTERED AT THIS TIME;IV SITE PATENT AND TELE MONITORING IN PLACE;PT DENIES ANY ADDITIONAL NEEDS AND IS ENCOURAGED TO CALL FOR ASSISTANCE IF NEEDED;FALL PRECAUTIONS IN PLACE WITH CALL LIGHT IN REACH;WILL CONTINUE TO MONITOR
--- NOTE | 2019-10-22 15:45 | NUR ---
PT RESTING IN SEMI FOWLERS POSITION;RESPIRATIONS EVEN AND UNLABORED ON RA;PT REPORTS GENERALIZED PAIN RATING 10/10 ON THE PAIN SCALE AND REQUESTS PAIN MEDICATION,PT MEDICATED WITH PRN LORTAB 5/325MG PO;TELE MONITORING IN PLACE;IV SITE REMAINS PATENT;PT ENCOURAGED TO CALL FOR ASSISTANCE IF NEEDED;CALL LIGHT IN REACH;WILL CONTINUE TO MONITOR
--- NOTE | 2019-10-22 18:55 | NUR ---
REPORT RECEIVED FROM NEDA HUERTA. PT RESTING IN BED. SAFETY PRECAUTIONS IN PLACE. WILL CONTINEU TO MONITOR.
--- NOTE | 2019-10-22 20:33 | NUR ---
PT REPORTS HAVING CHEST PAIN ALONG WITH GENERALIZED PAIN RATING IT A 10/10. PT MEDICATED PER EMAR ORDERS. MD TO BE NOTIFIED. RESPIRATIONS EVEN AND UNLABORED LUNGS SOUND CLEAR DIMINISHED. PEDAL PULSE STRONG. SAFETY PRECAUTIONS IN PLACE. WILL CONTINUE TO MONITOR.
--- NOTE | 2019-10-23 00:19 | NUR ---
PT RESTING IN BED. RESPIRATIONS EVEN AND UNLABORED. NO S/S OF DISTRESS AT THIS TIME. SAFETY PRECAUTIONS IN PLACE. WILL CONTINUE TO MONITOR.
[2019-10-23 00:37] VITALS: BP 108/61
--- NOTE | 2019-10-23 03:59 | NUR ---
PT RESTING IN BED. NO S/S OF DISTRESS AT THIS TIME. SAFETY PRECAUTIONS IN PLACE. WILL CONTINEU TO MONITOR.
[2019-10-23 04:05] VITALS: BP 108/63
--- NOTE | 2019-10-23 07:30 | NUR ---
REPORT RECEIVED FROM PACO CORDERO. PT SUPINE IN BED. REPORTS SEVERE 10/10 LEFT LEG PAIN, SHARP IN NATURE. STATES WHEN SHE HAS CHEST PAIN IN RADIATES FROM MIDSTERNAL AREA DOWN THROUGH LEFT LEG. NO CHEST PAIN AT THIS TIME. NOTHING MAKES THE LEFT LEG PAIN WORSE, AND ONLY PAIN PILLS MAKE IT BETTER. REQUESTING PAIN PILL AT THIS TIME. LORTAB ORDER AND SCHEDULE OF ADMINISTRATION REVIEWED W/ PT. PLAN OF CARE DISCUSSED. CALL LIGHT REVIEWED AND IN REACH. PT STATES UNDERSTANDING.
[2019-10-23 09:01] VITALS: BP 111/66
[2019-10-23 11:38] VITALS: BP 129/80
--- NOTE | 2019-10-23 12:14 | NUR ---
PATIENT AWAKE ON ENTRY IN SEMI-FOLWERS, SATS 97 ON ROOM AIR, HR 87BPM ON DROPLET PRECAUTIONS FOR STREP THROAT. PATIENT VERBALLY CONSENTS TO TREATMENT BY PHYSICAL THERAPIST. PATIENT REPORTS PAIN IN R ANKLE WHICH IS 10/10 ON PLANTARFLEXION. PATIENT WILLING TO AMBULATE TODAY WITH 2WW WHICH WAS PERFORMED WITH CGA THROUGHOUT PATIENT REMAINED SHAKY BILAT LES. 50FT AMBULATED SATS REMAINED 96% AND HR 95BPM. PATIENT HAPPY TO CONTINUE TO AMBULATE WITH 2WW BACK TO ROOM. NO LOB THROUGHOUT HOWEVER PATIENT CONTINUED TO BE SOB THROUGHOUT. LIMITED KNEE FLEXION THROUGHOUT SWING PHASE OF THE RLE. PATIENT DENIES INJURY TO R KNEE. PATIENT RETURNED TO BED, HEP INITIATED WITH HANDOUT PROVIDED AND PICTURES PLACED ON WALL VISUAL REMINDER. PATIENT HAPPY TO PERFORM. PHYSICAL THERAPIST RECOMMENDED TO PATIENT NOT TO AMBULATE WITHOUT 2WW AND SUPERVISION FROM NURSING STAFF PATIENT REMAINS UNSTEADY. HEP INCLUDES LE STRENGTHENING. PATIENT LEFT IN ROOM WITH BUZZER IN REACH. NO QUESTIONS OR CONCERNS FROM PATIENT POST-TX. NO ADVERSE EFFECTS OF TREATMENT. 15 MIN TE 15 MIN TDA
[2019-10-23] MEDS ORDERED: ZITHROMAX500 MG PO (12:29)
[2019-10-23] MEDS ORDERED: XARELTO20 MG PO (12:29)
[2019-10-23] MEDS ORDERED: PREDNISONE50 MG PO (12:29)
--- NOTE | 2019-10-23 12:30 | NUR ---
JENNIFER FELIPE IN TO SEE PT. AT THIS TIME. PLAN OF CARE AND DISCHARGE HOME TODAY DISCUSSED AND AGREED UPON, PENDING DR. ARNETT.
[2019-10-23 15:05] VITALS: BP 118/72
--- NOTE | 2019-10-23 15:36 | NUR ---
DR. ARNETT IN TO SEE PT. DISCHARGE HOME DISCUSSED AND AGREED UPON.
--- NOTE | 2019-10-23 16:26 | NUR ---
Discharge instructions given. Patient verbalizes understanding of same. Discharged in stable condition via Wheelchair to Home with significant other. All belongings sent with pt.
== END 2019-10-23 16:22 | disposition home or self-care (01) | DRG 192 ==
LOC: ED 10:13 → ED-I 12:31 → ED 12:53 → MS2 12:54
PROVIDERS: Family Medicine; Nurse Practitioner Family; ADMIT Internal Medicine; ATTEND Internal Medicine
PROC: 3E0234Z Introduction of Serum, Toxoid and Vaccine into Muscle, Percutaneous Approach (ICD-10-PCS; principal; 2019-10-22)
DX: J43.9 Emphysema, unspecified (principal); R07.89 Other chest pain; J02.0 Streptococcal pharyngitis; I10 Essential (primary) hypertension; I48.0 Paroxysmal atrial fibrillation; F14.90 Cocaine use, unspecified, uncomplicated; F17.210 Nicotine dependence, cigarettes, uncomplicated; I25.2 Old myocardial infarction; Z23 Encounter for immunization; Z79.01 Long term (current) use of anticoagulants; Z86.718 Personal history of other venous thrombosis and embolism; T45.516A Underdosing of anticoagulants, initial encounter; Z91.120 Patient's intentional underdosing of medication regimen due to financial hardship
CPT/HCPCS: G0378

== ENCOUNTER 2020-05-11 19:04 | Emergency (ER) | payer SELFPAY ==
[~2020-05-11] VITALS: Ht 167.6 cm; Wt 83.6 kg
[~2020-05-11 19:04] MED LIST changes: +ZITHROMAX500 MG PO
[2020-05-11 20:19] LABS: HEMATOCRIT 42.9 % (37.0-47.0); HEMOGLOBIN 13.7 g/dl (12.0-16.0); IMMATURE GRANULOCYTES 0.2 % (0.0-5.0); MEAN CELL VOLUME 99.1 fL CALC (80.0-100.0); MEAN CORPUSCULAR HGB 31.6 pG CALC (26.0-32.0); MEAN CORPUSCULAR HGB CONC 31.9 g/dL CAL (32.0-36.0); NEUT# 4.33 thou/uL (2.00-7.15); RED BLOOD COUNT 4.33 mill/uL (4.20-5.60); RED CELL DISTRI WIDTH 14.6 % (11.5-15.5); URINE BILIRUBIN - DIPSTICK NEGATIVE (NEGATIVE); URINE BLOOD DIPSTICK TRACE-INTACT (NEGATIVE); URINE COLOR YELLOW; URINE GLUCOSE - DIPSTICK NEGATIVE (NEGATIVE); URINE KETONE NEGATIVE (NEGATIVE); URINE LEUK ESTERASE NEGATIVE (NEGATIVE); URINE NITRITE - DIPSTICK NEGATIVE (Negative); URINE PROTEIN - DIPSTICK NEGATIVE (NEG-TRACE); URINE SPECIFIC GRAVITY >=1.030; URINE UROBILINOGEN - DIPSTICK 0.2 E.U./dL (0.2)
[2020-05-11 20:37] LABS: ALBUMIN 4.6 g/dL (3.2-5.0); ALKALINE PHOSPHATASE 70 u/l (38-126); ANION GAP 11 (6-22 (CALC)); BILIRUBIN, TOTAL 0.3 mg/dL (0.0-1.4); BUN 16 mg/dL (7-17); BUN/CREATININE RATIO 19 (12-20 (CALC)); CARBON DIOXIDE 27 mmol/l (22-30); CHLORIDE 104 mmol/l (95-108); CREATININE 0.8 mg/dL (0.5-1.0); GFR > 60 ML/MIN (>=60 (CALC)); GFR FOR AFR.AMER. > 60 ML/MIN (>=60 (CALC)); POTASSIUM 4.4 mmol/l (3.5-5.1); SGOT/AST 20 u/l (14-36); SODIUM 138 mmol/l (137-146); TOTAL PROTEIN 7.6 g/dL (6.3-8.2)
[2020-05-11 20:54] LABS: ACT PARTIAL THROMBO TIME 24.5 SECONDS (20.0-32.5); INTERNATIONAL NORMALIZED RATIO 0.9 RATIO (0.7-1.3); PROTHROMBIN TIME 9.2 SECONDS (9.0-12.5)
[2020-05-11 21:22] VITALS: BP 154/96
== END 2020-05-11 21:24 | disposition home or self-care (01) | DRG 74 ==
LOC: ED 19:04
DX: M54.12 Radiculopathy, cervical region (principal); I10 Essential (primary) hypertension; F14.90 Cocaine use, unspecified, uncomplicated; J44.9 Chronic obstructive pulmonary disease, unspecified; F17.210 Nicotine dependence, cigarettes, uncomplicated; I25.2 Old myocardial infarction; Z86.711 Personal history of pulmonary embolism; Z79.01 Long term (current) use of anticoagulants

== ENCOUNTER 2020-10-05 10:15 | Emergency (ER) | payer SELFPAY ==
[~2020-10-05] VITALS: Ht 167.6 cm; Wt 70.0 kg
[2020-10-05 10:57] LABS: HEMOGLOBIN 13.7 g/dl (12.0-16.0); IMMATURE GRANULOCYTES 0.2 % (0.0-5.0); MEAN CELL VOLUME 98.4 fL CALC (80.0-100.0); MEAN CORPUSCULAR HGB 31.4 pG CALC (26.0-32.0); MEAN CORPUSCULAR HGB CONC 31.9 g/dL CAL (32.0-36.0); NEUT# 3.92 thou/uL (2.00-7.15); RED BLOOD COUNT 4.37 mill/uL (4.20-5.60); RED CELL DISTRI WIDTH 14.5 % (11.5-15.5)
[2020-10-05] MEDS ORDERED: XARELTO10 MG PO (11:04)
[2020-10-05 11:07] LABS: ALBUMIN 4.3 g/dL (3.2-5.0); ALKALINE PHOSPHATASE 57 u/l (38-126); ANION GAP 11 (6-22 (CALC)); BILIRUBIN, TOTAL 0.4 mg/dL (0.0-1.4); BUN 12 mg/dL (7-17); BUN/CREATININE RATIO 15 (12-20 (CALC)); CARBON DIOXIDE 28 mmol/l (22-30); CHLORIDE 107 mmol/l (95-108); CREATININE 0.8 mg/dL (0.5-1.0); GFR > 60 ML/MIN (>=60 (CALC)); GFR FOR AFR.AMER. > 60 ML/MIN (>=60 (CALC)); POTASSIUM 4.4 mmol/l (3.5-5.1); SGOT/AST 20 u/l (14-36); SODIUM 141 mmol/l (137-146)
[2020-10-05 12:29] LABS: ACT PARTIAL THROMBO TIME 24.3 SECONDS (20.0-32.5); PROTHROMBIN TIME 10.1 SECONDS (9.0-12.5)
[2020-10-05 12:58] LABS: HCG SERUM/URINE (NEG/POS) NEGATIVE (NEGATIVE)
[2020-10-05 15:10] VITALS: BP 124/78
[2020-10-05 16:42] LABS: URINE BILIRUBIN - DIPSTICK NEGATIVE (NEGATIVE); URINE BLOOD DIPSTICK NEGATIVE (NEGATIVE); URINE COLOR YELLOW; URINE GLUCOSE - DIPSTICK NEGATIVE (NEGATIVE); URINE KETONE NEGATIVE (NEGATIVE); URINE LEUK ESTERASE NEGATIVE (NEGATIVE); URINE NITRITE - DIPSTICK NEGATIVE (Negative); URINE PH 6.5 (4.5-8.0); URINE PROTEIN - DIPSTICK NEGATIVE (NEG-TRACE); URINE SPECIFIC GRAVITY <=1.005; URINE UROBILINOGEN - DIPSTICK 0.2 E.U./dL (0.2)
== END 2020-10-05 15:10 | disposition short-term general hospital (02) | DRG 282 ==
LOC: ED 10:15
PROVIDERS: Family Medicine
DX: I21.4 Non-ST elevation (NSTEMI) myocardial infarction (principal); J44.9 Chronic obstructive pulmonary disease, unspecified; I10 Essential (primary) hypertension; F32.9 Major depressive disorder, single episode, unspecified; F17.200 Nicotine dependence, unspecified, uncomplicated; I25.2 Old myocardial infarction; Z86.711 Personal history of pulmonary embolism; Z79.01 Long term (current) use of anticoagulants; Z20.828 Contact with and (suspected) exposure to other viral communicable diseases
CPT/HCPCS: J1644; Q9967

== ENCOUNTER 2020-11-12 05:49 | Emergency (ER) | payer SELFPAY ==
[~2020-11-12] VITALS: Ht 167.6 cm; Wt 59.1 kg
[~2020-11-12 05:49] MED LIST changes: +XARELTO10 MG PO
[2020-11-12 05:50] VITALS: BP 113/65
[2020-11-12] MEDS ORDERED: BACTRIM DS1 TAB PO ×2 (06:10→06:33)
== END 2020-11-12 06:45 | disposition home or self-care (01) | DRG 603 ==
LOC: ED 05:49
PROC: 0H98XZZ Drainage of Buttock Skin, External Approach (ICD-10-PCS; principal; 2020-11-12)
DX: L02.31 Cutaneous abscess of buttock (principal); I10 Essential (primary) hypertension; J44.9 Chronic obstructive pulmonary disease, unspecified; F32.9 Major depressive disorder, single episode, unspecified; I25.2 Old myocardial infarction; F17.200 Nicotine dependence, unspecified, uncomplicated; Z86.711 Personal history of pulmonary embolism

== ENCOUNTER 2020-11-14 08:41 | Emergency (ER) | payer SELFPAY ==
[~2020-11-14] VITALS: Ht 167.6 cm; Wt 59.0 kg
[~2020-11-14 08:41] MED LIST changes: +BACTRIM DS1 TAB PO
[2020-11-14] MEDS ORDERED: HYDROCO/APAP1 TA9 PO ×2 (09:21→13:47)
[2020-11-14] MEDS ORDERED: KEFLEX500 MG PO ×2 (09:21→13:47)
[2020-11-14 10:14] VITALS: BP 117/73
== END 2020-11-14 10:14 | disposition home or self-care (01) | DRG 603 ==
LOC: ED 08:41
DX: L02.31 Cutaneous abscess of buttock (principal); I10 Essential (primary) hypertension; J44.9 Chronic obstructive pulmonary disease, unspecified; F32.9 Major depressive disorder, single episode, unspecified; F17.210 Nicotine dependence, cigarettes, uncomplicated; I25.2 Old myocardial infarction; B95.62 Methicillin resistant Staphylococcus aureus infection as the cause of diseases classified elsewhere; Z86.711 Personal history of pulmonary embolism

== ENCOUNTER 2020-11-24 12:55 | Observation (INO) | payer SELFPAY ==
[~2020-11-24] VITALS: Ht 167.6 cm; Wt 65.0 kg
[~2020-11-24 12:55] MED LIST changes: +HYDROCO/APAP1 TA9 PO; +KEFLEX500 MG PO
--- NOTE | 2020-11-24 13:00 | NUR ---
PATIENT RETRIEVED OUTSIDE FOR BEDSIDE TRIAGE PATIENT HAD TO BE TOLD TO PUT HER CIGARETTE PRIOR TO ENTERING BUILDING. MD NOTIFIED OF PATIENT STATUS
--- NOTE | 2020-11-24 13:03 | NUR ---
PATIENT TO ROOM WITH A STEADY GAIT FOR BEDSIDE TRIAGE.
--- NOTE | 2020-11-24 13:30 | NUR ---
INTRODUCED SELF TO PT. REPORTS COVID RELATED SYMTOMS (COUGH, CHEST PAIN) X 3 DAYS WITH CHEST PAIN STARTING 2 DAYS AGO. PT WAS SEEN AT [facility] 1 MONTH AGO FOR ELEVATED TROPONINS PER PT HEART CATH DONE WITH NO FINDINGS, PT UNABLE TO FOLLOW UP WITH HER BENEFITS MANAGER.
--- NOTE | 2020-11-24 13:40 | NUR ---
IV INTIATED WITH BLOOD SPECIMENS OBTAINED. PT TOLERATED WELL. MACHINE CERAMIC COATER IN PLACE. ADVISED OF CONT WAIT TIME FOR RESULTS. VERBALIZED UNDERSTANDING.
[2020-11-24] MEDS ORDERED: ATORVASTATIN CA80 MG PO (13:49)
[2020-11-24] MEDS ORDERED: NORCO1 TA1 PO (13:50)
[2020-11-24] MEDS ORDERED: CEPHALEXIN500 MG PO (13:50)
[2020-11-24 13:51] LABS: HEMATOCRIT 42.5 % (37.0-47.0); HEMOGLOBIN 13.5 g/dl (12.0-16.0); IMMATURE GRANULOCYTES 0.4 % (0.0-5.0); MEAN CELL VOLUME 100.2 fL CALC (80.0-100.0); MEAN CORPUSCULAR HGB 31.8 pG CALC (26.0-32.0); MEAN CORPUSCULAR HGB CONC 31.8 g/dL CAL (32.0-36.0); NEUT# 8.35 thou/uL (2.00-7.15); RED BLOOD COUNT 4.24 mill/uL (4.20-5.60); RED CELL DISTRI WIDTH 14.2 % (11.5-15.5)
[2020-11-24] MEDS ORDERED: ASPIRINCHW 81MG PO (13:51)
[2020-11-24] MEDS ORDERED: HYDROXYZ HCL10 MG PO (13:51)
[2020-11-24] MEDS ORDERED: METOPROL TAR25 MG PO (13:51)
[2020-11-24] MEDS ORDERED: NITROSTAT0.4 MG SL (13:53)
[2020-11-24 14:14] LABS: ANION GAP 10 (6-22 (CALC)); BUN 10 mg/dL (7-17); BUN/CREATININE RATIO 12 (12-20 (CALC)); CARBON DIOXIDE 28 mmol/l (22-30); CHLORIDE 103 mmol/l (95-108); CREATININE 0.8 mg/dL (0.5-1.0); GFR > 60 ML/MIN (>=60 (CALC)); GFR FOR AFR.AMER. > 60 ML/MIN (>=60 (CALC)); POTASSIUM 4.2 mmol/l (3.5-5.1); SODIUM 137 mmol/l (137-146)
--- NOTE | 2020-11-24 15:18 | NUR ---
REPORT CALLED TO MED SURGE NURSE JOSÉ.
--- NOTE | 2020-11-24 15:30 | NUR ---
Admission Note Report Given to: NEDA KUMAR Transported by: X Wheelchair Stretcher Transported with: X Nurse Transporter X Patent IV O2 X Liquor Maker Location: ICU X MS2 PT TRANSPORTED TO [place] [id number] VIA IN STABLE CONDITION. ACCOMPANIED WITH BELONGINGS (PINK BAG, CLOTHING)
[2020-11-24 15:44] VITALS: BP 137/84
--- NOTE | 2020-11-24 15:45 | NUR ---
PT ARRIVED FROM ER VIA WC WITH STAFF. IV SITE AND TELE MONITOR IN PLACE.
--- NOTE | 2020-11-24 15:55 | NUR ---
ASSESSMENT IS COMPLETED: IV SITE IS FREE FROM REDNESS OR EDEMA. HR IS REG,PULSES ARE STRONG X4, ABD IS SOFT WITH ACTIVE BS BREATH SOUNDS ARE CLEAR BILATERALLY, TELE MONITOR IN PLACE.
--- NOTE | 2020-11-24 17:30 | NUR ---
R BUTTOCK HAS A DRESSING PT HAS BEEN KEEPING IT COVERED FROM AN ABCESS THAT WAS LANCED OVER A WEEK AGO. MINIMAL AMOUNT OF DRAINAGE NOTED. JONY GLASS CHECKING THE STATUS OF THE SITE.
[2020-11-24 18:37] VITALS: BP 103/65
[2020-11-24 19:26] LABS: URINE BILIRUBIN - DIPSTICK NEGATIVE (NEGATIVE); URINE BLOOD DIPSTICK NEGATIVE (NEGATIVE); URINE COLOR YELLOW; URINE GLUCOSE - DIPSTICK NEGATIVE (NEGATIVE); URINE KETONE NEGATIVE (NEGATIVE); URINE LEUK ESTERASE NEGATIVE (NEGATIVE); URINE NITRITE - DIPSTICK NEGATIVE (Negative); URINE PROTEIN - DIPSTICK NEGATIVE (NEG-TRACE); URINE SPECIFIC GRAVITY 1.015; URINE UROBILINOGEN - DIPSTICK 0.2 E.U./dL (0.2)
--- NOTE | 2020-11-24 19:37 | NUR ---
RECEIVED CHANGE OF SHIFT REPORT FROM JOSÉ CARE OF PATIENT ASSUMED.
--- NOTE | 2020-11-24 20:00 | NUR ---
PT A&O X 3 LAYING IN BED, WATCHING TV. ASSESSMENT COMPLETE, POC DISCUSSED. PT IS C/O HEADACHE WHICH SHE RATES A 10/10 AND IS REQUESTING A SNACK, PAIN MED AND A SLEEPING PILL, WILL MEDICATED PER MD ORDERS AND PROVIDE SNACK. ALL SAFETY MEASURE IN PLACE, BED IN LOWEST POSITION WITH WHEELS LOCKED AND UPPER SIDE RAILS UP X 2 AND CALL LIGHT WITHIN REACH. PT INSTRUCTED TO CALL FOR ANY NEEDS/ASSISTANCE. WILL CONTINUE TO MONITOR.
[2020-11-24 23:50] VITALS: BP 101/65
--- NOTE | 2020-11-25 | NUR ---
PT LAYING IN BED SLEEPING. NO S/SX OF DISTRESS OR DISCOMFORT OBSERVED. CALL LIGHT REMAINS WITHIN REACH, WILL CONTINUE TO MONITOR.
[2020-11-25 04:24] VITALS: BP 102/63
--- NOTE | 2020-11-25 04:35 | NUR ---
PT IS LAYING BED SLEEPING, NO S/SX OF DISTRESS OR DISCOMFORT OBSERVED, CALL LIGHT IS WITHIN REACH, WILL CONTINUE TO MONITOR.
[2020-11-25 06:20] LABS: HEMATOCRIT 42.2 % (37.0-47.0); IMMATURE GRANULOCYTES 0.2 % (0.0-5.0); MEAN CELL VOLUME 102.9 fL CALC (80.0-100.0); MEAN CORPUSCULAR HGB 31.7 pG CALC (26.0-32.0); MEAN CORPUSCULAR HGB CONC 30.8 g/dL CAL (32.0-36.0); NEUT# 5.76 thou/uL (2.00-7.15); RED BLOOD COUNT 4.1 mill/uL (4.20-5.60); RED CELL DISTRI WIDTH 14.2 % (11.5-15.5)
--- NOTE | 2020-11-25 06:27 | NUR ---
IV site found dislodge, cath intact. No edema, some slight redness. No voice discomfort.
[2020-11-25 06:35] LABS: CHOLESTEROL HDL RATIO 2.7 (<4.4 (CALC))
[2020-11-25 06:38] LABS: C-REACTIVE PROTEIN 1.1 mg/dL (0-0.9)
[2020-11-25 07:30] VITALS: BP 107/40
--- NOTE | 2020-11-25 07:30 | NUR ---
ASSESSMENT IS COMPLETED: IV SITE IS FREE FROM REDNESS OR EDEMA. HR IS REG,PULSES ARE STRONG X4, ABD IS SOFT WITH ACTIVE BS. BREATH SOUNDS ARE CLEAR,BILATERALLY, DRY COUGH NOTED. TELE MONITOR IN PLACE,.CONTINUE TO OSBERVCE AND MONITOR.
[2020-11-25 09:20] VITALS: BP 107/40
[2020-11-25] MEDS ORDERED: XARELTO10 MG PO (11:20)
[2020-11-25] MEDS ORDERED: FLEXERIL5 MG PO (11:21)
--- NOTE | 2020-11-25 12:00 | NUR ---
DISCHARGE INSTRUCTIONS GIVEN AND VERBALIZED UNDERSTANDING. IV SITE DISCONITNUED CATHETER INTACT. NO REDNESS OR EDEMA. PT FAMILY IN THE ER PARKING LOT WAITING TO GO HOME. Discharge instructions given. Patient verbalizes understanding of same. Discharged in stable condition via Ambulatory to Home with family. All belongings sent with pt.
== END 2020-11-25 12:03 | disposition home or self-care (01) | DRG 313 ==
LOC: ED 12:55 → ED-I 14:30 → ED 14:45 → MS2 14:46
PROVIDERS: Family Medicine; Nurse Practitioner; ADMIT Internal Medicine; ATTEND Internal Medicine
DX: R07.9 Chest pain, unspecified (principal); R05 Cough; F14.10 Cocaine abuse, uncomplicated; J43.9 Emphysema, unspecified; I10 Essential (primary) hypertension; I25.10 Atherosclerotic heart disease of native coronary artery without angina pectoris; I48.0 Paroxysmal atrial fibrillation; M54.2 Cervicalgia; M54.9 Dorsalgia, unspecified; G89.29 Other chronic pain; F32.9 Major depressive disorder, single episode, unspecified; F17.200 Nicotine dependence, unspecified, uncomplicated; I25.2 Old myocardial infarction; T45.516A Underdosing of anticoagulants, initial encounter; Z91.120 Patient's intentional underdosing of medication regimen due to financial hardship; Z79.82 Long term (current) use of aspirin; Z86.718 Personal history of other venous thrombosis and embolism; Z20.822 Contact with and (suspected) exposure to COVID-19
CPT/HCPCS: G0378; J1650

== ENCOUNTER 2021-03-14 10:00 | Emergency (ER) | payer SELFPAY ==
[~2021-03-14] VITALS: Ht 167.6 cm; Wt 59.0 kg
[~2021-03-14 10:00] MED LIST changes: +ASPIRINCHW 81MG PO; +ATORVASTATIN CA80 MG PO; +HYDROXYZ HCL10 MG PO; +METOPROL TAR25 MG PO; +NITROSTAT0.4 MG SL; +NORCO1 TA1 PO
[2021-03-14] MEDS ORDERED: OFLOXACIN0.3 % OD (11:25)
[2021-03-14 11:32] VITALS: BP 132/72
== END 2021-03-14 11:35 | disposition home or self-care (01) | DRG 125 ==
LOC: ED 10:00
DX: S05.01XA Injury of conjunctiva and corneal abrasion without foreign body, right eye, initial encounter (principal); I10 Essential (primary) hypertension; J44.9 Chronic obstructive pulmonary disease, unspecified; F32.9 Major depressive disorder, single episode, unspecified; F17.210 Nicotine dependence, cigarettes, uncomplicated; I25.2 Old myocardial infarction; X58.XXXA Exposure to other specified factors, initial encounter; Y93.89 Activity, other specified; Z86.711 Personal history of pulmonary embolism

== ENCOUNTER 2021-09-23 22:59 | Emergency (ER) | payer SELFPAY ==
[~2021-09-23] VITALS: Ht 167.6 cm; Wt 56.0 kg
[~2021-09-23 22:59] MED LIST changes: +OFLOXACIN0.3 % OD
[2021-09-24 03:10] VITALS: BP 109/62
[2021-09-24] MEDS ORDERED: TRAMADOL HCL50 MG PO (03:19)
[2021-09-24] MEDS ORDERED: VOLTAREN75 MG PO (03:19)
== END 2021-09-24 07:36 | disposition home or self-care (01) | DRG 206 ==
LOC: ED 22:59
DX: S22.39XA Fracture of one rib, unspecified side, initial encounter for closed fracture (principal); S20.313A Abrasion of bilateral front wall of thorax, initial encounter; T14.8XXA Other injury of unspecified body region, initial encounter; I10 Essential (primary) hypertension; J44.9 Chronic obstructive pulmonary disease, unspecified; F32.A Depression, unspecified; I25.2 Old myocardial infarction; F17.200 Nicotine dependence, unspecified, uncomplicated; Y00.XXXA Assault by blunt object, initial encounter; Y92.009 Unspecified place in unspecified non-institutional (private) residence as the place of occurrence of the external cause; Z86.711 Personal history of pulmonary embolism

== ENCOUNTER 2021-09-27 14:50 | Observation (INO) | payer SELFPAY ==
[~2021-09-27] VITALS: Ht 167.6 cm; Wt 59.0 kg
[~2021-09-27 14:50] MED LIST changes: +TRAMADOL HCL50 MG PO; +VOLTAREN75 MG PO
[2021-09-27 15:39] LABS: GFR > 60 ML/MIN (>=60 (CALC)); GFR FOR AFR.AMER. > 60 ML/MIN (>=60 (CALC))
[2021-09-27 15:40] LABS: HEMOGLOBIN 12.7 g/dl (12.0-16.0); IMMATURE GRANULOCYTES 0.1 % (0.0-5.0); MEAN CELL VOLUME 101.5 fL CALC (80.0-100.0); MEAN CORPUSCULAR HGB 32.2 pG CALC (26.0-32.0); MEAN CORPUSCULAR HGB CONC 31.8 g/dL CAL (32.0-36.0); NEUT# 4.41 thou/uL (2.00-7.15); RED BLOOD COUNT 3.94 mill/uL (4.20-5.60); RED CELL DISTRI WIDTH 13.4 % (11.5-15.5)
[2021-09-27 15:52] LABS: ALKALINE PHOSPHATASE 53 u/l (38-126); ANION GAP 11 (6-22 (CALC)); BILIRUBIN, TOTAL 0.4 mg/dL (0.0-1.4); BUN 19 mg/dL (7-17); BUN/CREATININE RATIO 29 (12-20 (CALC)); CARBON DIOXIDE 28 mmol/l (22-30); CHLORIDE 105 mmol/l (95-108); CREATININE 0.7 mg/dL (0.5-1.0); GFR > 60 ML/MIN (>=60 (CALC)); GFR FOR AFR.AMER. > 60 ML/MIN (>=60 (CALC)); LIPASE 56 u/l (23-300); POTASSIUM 4.1 mmol/l (3.5-5.1); SGOT/AST 27 u/l (14-36); SODIUM 140 mmol/l (137-146); TOTAL PROTEIN 7.1 g/dL (6.3-8.2)
[2021-09-27 21:06] VITALS: BP 155/84
[2021-09-28 04:22] VITALS: BP 117/72
[2021-09-28 04:30] LABS: HEMATOCRIT 36.8 % (37.0-47.0); MEAN CELL VOLUME 99.7 fL CALC (80.0-100.0); MEAN CORPUSCULAR HGB 32.5 pG CALC (26.0-32.0); MEAN CORPUSCULAR HGB CONC 32.6 g/dL CAL (32.0-36.0); RED BLOOD COUNT 3.69 mill/uL (4.20-5.60); RED CELL DISTRI WIDTH 13.3 % (11.5-15.5)
[2021-09-28 04:40] LABS: ANION GAP 8 (6-22 (CALC)); BUN 17 mg/dL (7-17); BUN/CREATININE RATIO 25 (12-20 (CALC)); CARBON DIOXIDE 29 mmol/l (22-30); CHLORIDE 106 mmol/l (95-108); CREATININE 0.7 mg/dL (0.5-1.0); GFR > 60 ML/MIN (>=60 (CALC)); GFR FOR AFR.AMER. > 60 ML/MIN (>=60 (CALC)); MAGNESIUM 1.9 mg/dL (1.6-2.3); POTASSIUM 4.9 mmol/l (3.5-5.1); SODIUM 138 mmol/l (137-146)
[2021-09-28 07:24] VITALS: BP 119/75
[2021-09-28 15:58] VITALS: BP 145/91
[2021-09-28 18:32] VITALS: BP 136/80
[2021-09-28 19:00] VITALS: BP 141/81
[2021-09-29 04:00] VITALS: BP 100/59
[2021-09-29 05:42] LABS: HEMATOCRIT 38.5 % (37.0-47.0); HEMOGLOBIN 11.8 g/dl (12.0-16.0); MEAN CELL VOLUME 104.1 fL CALC (80.0-100.0); MEAN CORPUSCULAR HGB 31.9 pG CALC (26.0-32.0); MEAN CORPUSCULAR HGB CONC 30.6 g/dL CAL (32.0-36.0); RED BLOOD COUNT 3.7 mill/uL (4.20-5.60); RED CELL DISTRI WIDTH 13.4 % (11.5-15.5)
[2021-09-29 06:01] LABS: ANION GAP 12 (6-22 (CALC)); BUN 15 mg/dL (7-17); BUN/CREATININE RATIO 18 (12-20 (CALC)); CARBON DIOXIDE 32 mmol/l (22-30); CHLORIDE 105 mmol/l (95-108); CREATININE 0.8 mg/dL (0.5-1.0); GFR > 60 ML/MIN (>=60 (CALC)); GFR FOR AFR.AMER. > 60 ML/MIN (>=60 (CALC)); MAGNESIUM 2.1 mg/dL (1.6-2.3); SODIUM 144 mmol/l (137-146)
[2021-09-29 07:32] VITALS: BP 133/84
[2021-09-29 08:57] VITALS: BP 133/84
[2021-09-29] MEDS ORDERED: TRAZODONE100 MG PO (10:57)
[2021-09-29] MEDS ORDERED: AZITHROMYCIN500 MG PO (11:00)
[2021-09-29] MEDS ORDERED: LORTAB 7.57.5 MG PO (11:00)
[2021-09-29] MEDS ORDERED: OMNICEF300 M1 PO (11:01)
== END 2021-09-29 13:08 | disposition home or self-care (01) | DRG 183 ==
LOC: ED 14:50 → ED-I 18:30 → ED 18:47 → MS2 18:48
PROVIDERS: Family Medicine; ADMIT Hospitalist; ATTEND Hospitalist
DX: S22.43XA Multiple fractures of ribs, bilateral, initial encounter for closed fracture (principal); J18.9 Pneumonia, unspecified organism; R04.2 Hemoptysis; J43.9 Emphysema, unspecified; I10 Essential (primary) hypertension; I48.0 Paroxysmal atrial fibrillation; E78.5 Hyperlipidemia, unspecified; F32.A Depression, unspecified; I25.2 Old myocardial infarction; F17.200 Nicotine dependence, unspecified, uncomplicated; Y00.XXXA Assault by blunt object, initial encounter; Z86.718 Personal history of other venous thrombosis and embolism; Z86.711 Personal history of pulmonary embolism; Z79.01 Long term (current) use of anticoagulants; Z59.00 Homelessness unspecified; Z20.822 Contact with and (suspected) exposure to COVID-19
CPT/HCPCS: G0378; Q9967

== ENCOUNTER 2022-01-04 11:12 | Emergency (ER) | payer SELFPAY ==
[~2022-01-04] VITALS: Ht 167.6 cm; Wt 69.0 kg
[~2022-01-04 11:12] MED LIST changes: +AZITHROMYCIN500 MG PO; +LORTAB 7.57.5 MG PO; +OMNICEF300 M1 PO; +TRAZODONE100 MG PO
[2022-01-04] MEDS ORDERED: HYDROCO/APAP1 TA9 PO (15:45)
[2022-01-04] MEDS ORDERED: OMNICEF300 M1 PO (15:45)
[2022-01-04] MEDS ORDERED: BACTRIM DS1 TAB PO (15:45)
[2022-01-04 15:56] VITALS: BP 120/80
== END 2022-01-04 16:16 | disposition home or self-care (01) | DRG 603 ==
LOC: ED 11:12
PROC: 0H9CXZZ Drainage of Left Upper Arm Skin, External Approach (ICD-10-PCS; principal; 2022-01-04)
DX: L02.412 Cutaneous abscess of left axilla (principal); I10 Essential (primary) hypertension; J44.9 Chronic obstructive pulmonary disease, unspecified; F31.9 Bipolar disorder, unspecified; I25.2 Old myocardial infarction; F17.210 Nicotine dependence, cigarettes, uncomplicated; Z86.718 Personal history of other venous thrombosis and embolism; Z86.711 Personal history of pulmonary embolism; Z20.822 Contact with and (suspected) exposure to COVID-19

== ENCOUNTER 2022-04-03 03:10 | Observation (INO) | payer SELFPAY ==
[2022-04-03] VITALS (11 sets, daily range): BP systolic 93–131; BP diastolic 62–89
[~2022-04-03] VITALS: Ht 167.6 cm; Wt 64.0 kg
[2022-04-03 03:42] LABS: HEMATOCRIT 39.2 % (37.0-47.0); HEMOGLOBIN 12.9 g/dl (12.0-16.0); IMMATURE GRANULOCYTES 0.1 % (0.0-5.0); MEAN CELL VOLUME 100.8 fL CALC (80.0-100.0); MEAN CORPUSCULAR HGB 33.2 pG CALC (26.0-32.0); MEAN CORPUSCULAR HGB CONC 32.9 g/dL CAL (32.0-36.0); NEUT# 4.82 thou/uL (2.00-7.15); RED BLOOD COUNT 3.89 mill/uL (4.20-5.60); RED CELL DISTRI WIDTH 13.9 % (11.5-15.5)
[2022-04-03 04:20] LABS: ALBUMIN 3.8 g/dL (3.2-5.0); ALKALINE PHOSPHATASE 59 u/l (38-126); BILIRUBIN, TOTAL 0.5 mg/dL (0.0-1.4); BUN 14 mg/dL (7-17); BUN/CREATININE RATIO 21 (12-20 (CALC)); CHLORIDE 109 mmol/l (95-108); CREATININE 0.7 mg/dL (0.5-1.0); ETHYL ALCOHOL 0 mg/dl (0-30); GFR FOR AFR.AMER. > 60 ML/MIN (>=60 (CALC)); GFR OTHER RACES > 60 ML/MIN (>=60 (CALC)); SGOT/AST 22 u/l (14-36); SODIUM 139 mmol/l (137-146); TOTAL PROTEIN 6.5 g/dL (6.3-8.2)
[2022-04-03 04:24] LABS: ANION GAP 9 (6-22 (CALC)); CARBON DIOXIDE 25 mmol/l (22-30); POTASSIUM 3.7 mmol/l (3.5-5.1)
[2022-04-03 04:31] LABS: MYOGLOBIN 28 ng/mL (0 - 62)
[2022-04-03 05:27] LABS: URINE BILIRUBIN - DIPSTICK NEGATIVE (NEGATIVE); URINE BLOOD DIPSTICK SMALL (NEGATIVE); URINE COLOR YELLOW; URINE GLUCOSE - DIPSTICK NEGATIVE (NEGATIVE); URINE KETONE NEGATIVE (NEGATIVE); URINE PH 5.5 (4.5-8.0); URINE PROTEIN - DIPSTICK NEGATIVE (NEG-TRACE); URINE SPECIFIC GRAVITY >=1.030; URINE UROBILINOGEN - DIPSTICK 0.2 E.U./dL (0.2)
[2022-04-03 05:31] LABS: URINE NITRITE - DIPSTICK NEGATIVE (Negative)
[2022-04-03 05:32] LABS: URINE LEUK ESTERASE NEGATIVE (NEGATIVE)
[2022-04-03 05:35] LABS: URINE BACTERIA FEW hpf; URINE EPITHELIAL CELLS FEW EPI/hpf (0-FEW)
[2022-04-04 00:24] VITALS: BP 123/79
[2022-04-04 04:54] VITALS: BP 138/87
[2022-04-04 06:04] LABS: HEMATOCRIT 42.6 % (37.0-47.0); HEMOGLOBIN 13.8 g/dl (12.0-16.0); MEAN CELL VOLUME 103.9 fL CALC (80.0-100.0); MEAN CORPUSCULAR HGB 33.7 pG CALC (26.0-32.0); MEAN CORPUSCULAR HGB CONC 32.4 g/dL CAL (32.0-36.0); RED BLOOD COUNT 4.1 mill/uL (4.20-5.60); RED CELL DISTRI WIDTH 13.8 % (11.5-15.5)
[2022-04-04 06:18] LABS: ANION GAP 9 (6-22 (CALC)); BUN 13 mg/dL (7-17); BUN/CREATININE RATIO 16 (12-20 (CALC)); CARBON DIOXIDE 27 mmol/l (22-30); CHLORIDE 108 mmol/l (95-108); CREATININE 0.8 mg/dL (0.5-1.0); GFR FOR AFR.AMER. > 60 ML/MIN (>=60 (CALC)); GFR OTHER RACES > 60 ML/MIN (>=60 (CALC)); MAGNESIUM 2.2 mg/dL (1.6-2.3); POTASSIUM 4.4 mmol/l (3.5-5.1); SODIUM 140 mmol/l (137-146)
[2022-04-04 07:25] VITALS: BP 137/84
[2022-04-04 10:29] VITALS: BP 139/94
[2022-04-04] MEDS ORDERED: GABAPENTIN100 MG PO (14:05)
[2022-04-04 14:47] VITALS: BP 135/82
== END 2022-04-04 15:51 | disposition home or self-care (01) | DRG 204 ==
LOC: ED 03:10 → ED-I 04:40 → ED 05:02 → MS2 05:02
PROVIDERS: Emergency Medicine; ADMIT Hospitalist; ATTEND Hospitalist
DX: R07.81 Pleurodynia (principal); F14.10 Cocaine abuse, uncomplicated; I10 Essential (primary) hypertension; I25.10 Atherosclerotic heart disease of native coronary artery without angina pectoris; J43.9 Emphysema, unspecified; E78.5 Hyperlipidemia, unspecified; I48.0 Paroxysmal atrial fibrillation; F31.9 Bipolar disorder, unspecified; I25.2 Old myocardial infarction; F17.210 Nicotine dependence, cigarettes, uncomplicated; Z86.711 Personal history of pulmonary embolism; Z86.718 Personal history of other venous thrombosis and embolism; Z79.01 Long term (current) use of anticoagulants; Z20.822 Contact with and (suspected) exposure to COVID-19
CPT/HCPCS: G0378

== ENCOUNTER 2022-08-30 01:55 | Emergency (ER) | payer MEDICAID ==
[~2022-08-30] VITALS: Ht 167.6 cm; Wt 65.9 kg
[~2022-08-30 01:55] MED LIST changes: +GABAPENTIN100 MG PO
[2022-08-30 02:27] VITALS: BP 139/80
[2022-08-30 02:30] VITALS: BP 124/80
[2022-08-30] MEDS ORDERED: VIBRAMYCIN100 M2 PO (02:33)
[2022-08-30 02:45] VITALS: BP 155/88
[2022-08-30 02:52] VITALS: BP 155/88
== END 2022-08-30 03:01 | disposition home or self-care (01) ==
LOC: ED 01:55
DX: L03.114 Cellulitis of left upper limb (principal); I10 Essential (primary) hypertension; J44.9 Chronic obstructive pulmonary disease, unspecified; E78.00 Pure hypercholesterolemia, unspecified; F41.9 Anxiety disorder, unspecified; I25.2 Old myocardial infarction; F17.200 Nicotine dependence, unspecified, uncomplicated; Z86.711 Personal history of pulmonary embolism; Z79.01 Long term (current) use of anticoagulants

== ENCOUNTER 2022-09-08 12:46 | Emergency (ER) | payer MEDICAID ==
[~2022-09-08] VITALS: Ht 167.6 cm; Wt 65.9 kg
[~2022-09-08 12:46] MED LIST changes: +VIBRAMYCIN100 M2 PO
[2022-09-08] MEDS ORDERED: GABAPENTIN100 MG PO (13:04)
[2022-09-08] MEDS ORDERED: MUPIROCIN21 TOP (13:47)
[2022-09-08] MEDS ORDERED: CEPHALEXIN500 M1 PO (13:47)
[2022-09-08] MEDS ORDERED: BACTRIM DS1 TAB PO (13:47)
[2022-09-08] MEDS ORDERED: TRAMADOL HYDROC50 M1 PO (13:50)
[2022-09-08 13:52] VITALS: BP 122/64
[2022-09-08] MEDS ORDERED: XARELTO10 MG PO (13:56)
[2022-09-08] MEDS ORDERED: GABAPENTIN300 M2 PO (13:56)
== END 2022-09-08 14:06 | disposition home or self-care (01) ==
LOC: ED 12:46
DX: L03.114 Cellulitis of left upper limb (principal); I10 Essential (primary) hypertension; J44.9 Chronic obstructive pulmonary disease, unspecified; I25.2 Old myocardial infarction; F31.9 Bipolar disorder, unspecified; F17.210 Nicotine dependence, cigarettes, uncomplicated; E78.00 Pure hypercholesterolemia, unspecified; Z86.711 Personal history of pulmonary embolism; Z79.01 Long term (current) use of anticoagulants

== ENCOUNTER 2022-09-15 15:53 | Emergency (ER) | payer MEDICAID ==
[~2022-09-15] VITALS: Ht 167.6 cm; Wt 61.4 kg
[~2022-09-15 15:53] MED LIST changes: +CEPHALEXIN500 M1 PO; +GABAPENTIN300 M2 PO; +MUPIROCIN21 TOP; +TRAMADOL HYDROC50 M1 PO
[2022-09-15 16:01] VITALS: BP 105/69
[2022-09-15 16:30] VITALS: BP 95/72
[2022-09-15 16:30] LABS: HEMATOCRIT 42.6 % (37.0-47.0); HEMOGLOBIN 13.9 g/dl (12.0-16.0); IMMATURE GRANULOCYTES 0.1 % (0.0-5.0); MEAN CORPUSCULAR HGB 32.6 pG CALC (26.0-32.0); MEAN CORPUSCULAR HGB CONC 32.6 g/dL CAL (32.0-36.0); NEUT# 5.65 thou/uL (2.00-7.15); RED BLOOD COUNT 4.26 mill/uL (4.20-5.60); RED CELL DISTRI WIDTH 13.8 % (11.5-15.5)
[2022-09-15 16:40] LABS: ALBUMIN 4.3 g/dL (3.2-5.0); ALKALINE PHOSPHATASE 60 u/l (38-126); ANION GAP 11 (6-22 (CALC)); BILIRUBIN, TOTAL 0.6 mg/dL (0.0-1.4); BUN 20 mg/dL (7-17); BUN/CREATININE RATIO 24 (12-20 (CALC)); CARBON DIOXIDE 27 mmol/l (22-30); CHLORIDE 107 mmol/l (95-108); CREATININE 0.8 mg/dL (0.5-1.0); GFR FOR AFR.AMER. > 60 ML/MIN (>=60 (CALC)); GFR OTHER RACES > 60 ML/MIN (>=60 (CALC)); POTASSIUM 4.1 mmol/l (3.5-5.1); SGOT/AST 32 u/l (14-36); SODIUM 140 mmol/l (137-146); TOTAL PROTEIN 7.4 g/dL (6.3-8.2)
[2022-09-15 17:00] VITALS: BP 94/70
[2022-09-15 17:30] VITALS: BP 98/77
[2022-09-15 18:12] VITALS: BP 98/77
== END 2022-09-15 18:17 | disposition home or self-care (01) ==
LOC: ED 15:53
PROVIDERS: Emergency Medicine
DX: L03.114 Cellulitis of left upper limb (principal); E86.0 Dehydration; I10 Essential (primary) hypertension; J44.9 Chronic obstructive pulmonary disease, unspecified; E78.00 Pure hypercholesterolemia, unspecified; F31.9 Bipolar disorder, unspecified; I25.2 Old myocardial infarction; F17.210 Nicotine dependence, cigarettes, uncomplicated; T36.1X6A Underdosing of cephalosporins and other beta-lactam antibiotics, initial encounter; Z91.128 Patient's intentional underdosing of medication regimen for other reason; Z86.711 Personal history of pulmonary embolism

== ENCOUNTER 2023-02-10 14:10 | Emergency (ER) | payer OTHER | END 2023-02-10 14:21 | disposition left against medical advice (07) | DRG 951 | LOC: ED 14:10 → LWOBS 14:21 | DX: Z53.21 Procedure and treatment not carried out due to patient leaving prior to being seen by health care provider (principal) ==

== ENCOUNTER 2023-11-07 13:15 | Emergency (ER) | payer OTHER ==
[2023-11-07] VITALS (9 sets, daily range): BP systolic 128–153; BP diastolic 73–89
[~2023-11-07] VITALS: Ht 167.6 cm; Wt 52.1 kg
[2023-11-07 13:51] LABS: BASO% 0.5 % (0-3); EOS% 10.7 % (0-8); HEMATOCRIT 43.4 % (37.0-47.0); HEMOGLOBIN 13.8 g/dl (12.0-16.0); IMMATURE GRANULOCYTES 0.2 % (0.0-5.0); LYMPH% 35.3 % (15-41); MEAN CELL VOLUME 100.7 fL CALC (80.0-100.0); MEAN CORPUSCULAR HGB CONC 31.8 g/dL CAL (32.0-36.0); MONO% 6.8 % (2-13); NEUT# 4.41 thou/uL (2.00-7.15); NEUT% 46.5 % (42-76); RED BLOOD COUNT 4.31 mill/uL (4.20-5.60); RED CELL DISTRI WIDTH 14.2 % (11.5-15.5)
[2023-11-07 14:05] LABS: ALBUMIN 4.2 g/dL (3.2-5.0); ALKALINE PHOSPHATASE 61 u/l (38-126); ANION GAP 12 (6-22 (CALC)); BILIRUBIN, TOTAL 0.4 mg/dL (0.02-1.3); BUN 21 mg/dL (7-17); BUN/CREATININE RATIO 30 (12-20 (CALC)); CARBON DIOXIDE 26 mmol/l (22-30); CHLORIDE 108 mmol/l (95-108); CREATININE 0.7 mg/dL (0.5-1.0); GFR FOR AFR.AMER. > 60 ML/MIN (>=60 (CALC)); GFR OTHER RACES > 60 ML/MIN (>=60 (CALC)); POTASSIUM 3.8 mmol/l (3.5-5.1); SGOT/AST 27 u/l (14-36); SODIUM 141 mmol/l (137-146); TOTAL PROTEIN 6.9 g/dL (6.3-8.2)
[2023-11-07] MEDS ORDERED: PREDNISONE50 MG PO ×2 (14:48→14:49)
[2023-11-07] MEDS ORDERED: TRAMADOL HYDROC50 M1 PO (14:48)
[2023-11-07] MEDS ORDERED: DOXYCYCLINE100 MG PO (14:48)
[2023-11-07] MEDS ORDERED: HYDROCO/APAP1 TA9 PO (14:49)
[2023-11-07] MEDS ORDERED: DOXY-CAPS100 MG PO (14:49)
== END 2023-11-07 15:15 | disposition home or self-care (01) ==
LOC: ED 13:15
PROVIDERS: Family Medicine
DX: J06.9 Acute upper respiratory infection, unspecified (principal); I10 Essential (primary) hypertension; J44.9 Chronic obstructive pulmonary disease, unspecified; I25.2 Old myocardial infarction; F31.9 Bipolar disorder, unspecified; F17.210 Nicotine dependence, cigarettes, uncomplicated; Z86.711 Personal history of pulmonary embolism; Z20.822 Contact with and (suspected) exposure to COVID-19

== ENCOUNTER 2023-11-14 15:51 | Emergency (ER) | payer OTHER ==
[2023-11-14] VITALS (10 sets, daily range): BP systolic 125–141; BP diastolic 64–84
[~2023-11-14] VITALS: Ht 167.6 cm; Wt 61.0 kg
[~2023-11-14 15:51] MED LIST changes: +DOXY-CAPS100 MG PO; +DOXYCYCLINE100 MG PO
[2023-11-14 16:34] LABS: BASO% 0.2 % (0-3); EOS% 9.2 % (0-8); HEMATOCRIT 42.1 % (37.0-47.0); HEMOGLOBIN 13.4 g/dl (12.0-16.0); IMMATURE GRANULOCYTES 0.2 % (0.0-5.0); LYMPH% 23.3 % (15-41); MEAN CORPUSCULAR HGB 32.1 pG CALC (26.0-32.0); MEAN CORPUSCULAR HGB CONC 31.8 g/dL CAL (32.0-36.0); MONO% 10.4 % (2-13); NEUT% 56.7 % (42-76); RED BLOOD COUNT 4.17 mill/uL (4.20-5.60); RED CELL DISTRI WIDTH 14.4 % (11.5-15.5)
[2023-11-14 17:06] LABS: ALBUMIN 4.2 g/dL (3.2-5.0); BILIRUBIN, TOTAL 0.4 mg/dL (0.02-1.3); CREATININE 1.2 mg/dL (0.5-1.0); POTASSIUM 3.9 mmol/l (3.5-5.1); TOTAL PROTEIN 6.6 g/dL (6.3-8.2)
[2023-11-14] MEDS ORDERED: NAPROXEN500 MG PO (18:53)
[2023-11-14] MEDS ORDERED: PREDNISONE50 MG PO (18:53)
== END 2023-11-14 19:30 | disposition home or self-care (01) ==
LOC: ED 15:51
PROVIDERS: Family Medicine
DX: R10.84 Generalized abdominal pain (principal); J06.9 Acute upper respiratory infection, unspecified; I10 Essential (primary) hypertension; J44.9 Chronic obstructive pulmonary disease, unspecified; I25.2 Old myocardial infarction; F31.9 Bipolar disorder, unspecified; F17.200 Nicotine dependence, unspecified, uncomplicated; Z20.822 Contact with and (suspected) exposure to COVID-19
CPT/HCPCS: Q9967

== ENCOUNTER 2023-12-22 14:41 | Emergency (ER) | payer OTHER ==
[~2023-12-22] VITALS: Ht 167.6 cm; Wt 63.0 kg
[~2023-12-22 14:41] MED LIST changes: +NAPROXEN500 MG PO
[2023-12-22] MEDS ORDERED: ONDANSETRON 4 MG/TAB ODT PO ONE (15:30)
[2023-12-22] MEDS ORDERED: MORPHINE SULFATE 4 MG/ML VIAL IM ONE (15:30)
[2023-12-22 16:15] VITALS: BP 167/88
[2023-12-22] MEDS ORDERED: PERCOCET 5/325M1 TAB PO (16:32)
[2023-12-22] MEDS ORDERED: KEFLEX500 MG PO (17:51)
[2023-12-22] MEDS ORDERED: oxyCODONE 5MG/ ACETAMINOPHEN 325MG TAB PO ONE (18:00)
[2023-12-22 18:02] VITALS: BP 167/88
[2023-12-22] MEDS ORDERED: VENTOLIN HFA108 MCG PO (18:08)
== END 2023-12-22 18:16 | disposition home or self-care (01) | DRG 605 ==
LOC: ED 14:41
PROC: 0HQFXZZ Repair Right Hand Skin, External Approach (ICD-10-PCS; principal; 2023-12-22)
DX: S61.312A Laceration without foreign body of right middle finger with damage to nail, initial encounter (principal); S62.632A Displaced fracture of distal phalanx of right middle finger, initial encounter for closed fracture; I10 Essential (primary) hypertension; J44.9 Chronic obstructive pulmonary disease, unspecified; F31.9 Bipolar disorder, unspecified; I25.2 Old myocardial infarction; F17.200 Nicotine dependence, unspecified, uncomplicated; W23.0XXA Caught, crushed, jammed, or pinched between moving objects, initial encounter; Z86.711 Personal history of pulmonary embolism; Z79.01 Long term (current) use of anticoagulants; Z86.718 Personal history of other venous thrombosis and embolism

== ENCOUNTER 2023-12-26 16:55 | Emergency (ER) | payer OTHER ==
[~2023-12-26 16:55] MED LIST changes: +PERCOCET 5/325M1 TAB PO; +VENTOLIN HFA108 MCG PO
== END 2023-12-26 17:58 | disposition left against medical advice (07) | DRG 951 ==
LOC: ED 16:55 → LWOBS 17:57
DX: Z53.21 Procedure and treatment not carried out due to patient leaving prior to being seen by health care provider (principal)

== ENCOUNTER 2024-10-13 10:55 | Observation (INO) | payer OTHER ==
[~2024-10-13] VITALS: Ht 167.6 cm; Wt 67.0 kg
--- NOTE | 2024-10-13 11:00 | NUR ---
PT TO CT WITH STROKE ALERT CALLED
--- NOTE | 2024-10-13 11:01 | NUR ---
pt to the ed for stroke symptoms. pt states she woke up this morning and was completely normal. wake up time was 0830. the pt developed left side facial paralysis, a headache and slurred speech around 9am. pt last known normal 9am. pt stated she felt off and the symp[toms did not go a
[2024-10-13] MEDS ORDERED: Iopamidol 370 (Isovue) 76% 100 ML SDV IV ONE ×2 (11:05)
[2024-10-13 11:28] LABS: BASO% 0.9 % (0-3); EOS% 15.5 % (0-8); HEMATOCRIT 46.6 % (37.0-47.0); HEMOGLOBIN 14.9 g/dl (12.0-16.0); IMMATURE GRANULOCYTES 0.2 % (0.0-5.0); MEAN CELL VOLUME 101.5 fL CALC (80.0-100.0); MEAN CORPUSCULAR HGB 32.5 pG CALC (26.0-32.0); MONO% 6.5 % (2-13); NEUT# 4.64 thou/uL (2.00-7.15); NEUT% 43.9 % (42-76); RED BLOOD COUNT 4.59 mill/uL (4.20-5.60); RED CELL DISTRI WIDTH 14.2 % (11.5-15.5)
--- NOTE | 2024-10-13 11:28 | NUR ---
pt back from ct. neurologist states he is going to treat as a migraine. per the neurologist he states the pt's dry ct is clean
[2024-10-13 11:38] LABS: ALBUMIN 4.4 g/dL (3.2-5.0); ALKALINE PHOSPHATASE 64 u/l (38-126); ANION GAP 14 (6-22 (CALC)); BUN 16 mg/dL (7-17); BUN/CREATININE RATIO 22 (12-20 (CALC)); CALCULATED LDLCHOLESTEROL 47 mg/dL (62-129 (CALC)); CARBON DIOXIDE 27 mmol/l (22-30); CHLORIDE 106 mmol/l (95-108); CHOLESTEROL HDL RATIO 2.3 (<4.4 (CALC)); CREATININE 0.7 mg/dL (0.5-1.0); ESTIMATED GFR 103 ML/MIN (>=90 (CALC)); HDL CHOLESTEROL 73 mg/dL (39.0-59.0); POTASSIUM 3.9 mmol/l (3.5-5.1); SGOT/AST 22 u/l (14-36); SODIUM 143 mmol/l (137-146); TOTAL CHOLESTEROL 168 mg/dl (0-199); TOTAL PROTEIN 7.1 g/dL (6.3-8.2); TOTAL TRIGLYCERIDES 239 mg/dl (0-149); VLDL CHOLESTROL 48 mg/dl (2-49 (CALC))
[2024-10-13 11:42] LABS: BILIRUBIN, TOTAL 0.7 mg/dL (0.02-1.3)
--- NOTE | 2024-10-13 11:51 | NUR ---
PT TO CT FOR CTA
[2024-10-13 11:56] LABS: PROTHROMBIN TIME 10.3 SECONDS (9.0-12.5)
--- NOTE | 2024-10-13 13:11 | NUR ---
pt states she is hungry and that her headache is better. pt states she is also nauseous and wants to eat. pt was advised she is npo until readings come back
[2024-10-13] MEDS ORDERED: ACETAMINOPHEN 325 MG/TAB PO PRN (15:05)
[2024-10-13] MEDS ORDERED: MAGNESIUM HYDROXIDE 30 ML UDC PO PRN (15:05)
[2024-10-13] MEDS ORDERED: PROCHLORPERAZINE EDISYLATE 10 MG/2 ML SDV IV PRN (15:15)
[2024-10-13] MEDS ORDERED: DiphenhydrAMINE HCL 50 MG/ML SDV IV PRN (15:20)
--- NOTE | 2024-10-13 18:02 | NUR ---
PATIENT ARRIVES TO RM 5 FROM ED. HANDOFF REPORT RECEIVED FROM NAG[place] ANTONIO. PATIENT AMBULATES WITH STEADY GAIT TO BED. A+OX3, SPEECH SLIGHTLY SLURRED, RR EVEN AND UNLABORED. PATIENT IS PLEASANT, COOPERATIVE. PATIENT CHANGED INTO GOWN. PATIENT REPORTS PARASTHESIA ON LEFT SIDE OF FACE. COMPLAINS OF 10 OUT OF 10 HEADACHE ON RIGHT SIDE, RADIATING TO EAR. PATIENT DENIES ANY OTHER ISSUES OR NEEDS. PATIENT REPORTS NO VISION PROBLEMS. PATIENT SITTING UP IN BED, WATCHING TV, CALL LIGHT IN REACH, WILL CONTINUE TO MONITOR.
[2024-10-13 18:23] VITALS: BP 149/84
[2024-10-13 19:00] VITALS: BP 150/80
--- NOTE | 2024-10-13 19:20 | NUR ---
NIH ASSESSMENT COMPLETED W/ PREVIOUS NURSE, SCORE OF 2 FOR MILD VISION LOSS IN R EYE AND CERTAIN WORDS ARE NOT CLEAR. PT IS A + O x4. COMPLAINS OF SEVERE HEADACHE. PT AMBULATED TO BR. FLUIDS PROVIDED, ENCOURAGED INTAKE OF WATER. V/S STABLE, CALL LIGHT IN REACH
[2024-10-13] MEDS ORDERED: GABAPENTIN 300 MG/CAP PO PRN (19:30)
[2024-10-13] MEDS ORDERED: traMADol HCL 50 MG/TAB PO PRN (19:30)
[2024-10-13] MEDS ORDERED: NICOTINE TRANSDERMAL 21 MG/PATCH TD SCH (19:30)
[2024-10-13 20:00] VITALS: BP 148/79
[2024-10-13 21:00] VITALS: BP 138/76
[2024-10-13] MEDS ORDERED: ENOXAPARIN SODIUM 40 MG/0.4 ML SYR SC SCH (21:00)
[2024-10-13 22:00] VITALS: BP 153/79
--- NOTE | 2024-10-13 22:00 | NUR ---
PT RESTING, NO CHANGES NOTED. PT STATED THE TRAMADOL HELPED EASE THE HEADACHE. NO COMPLAINTS OR NEEDS AT THIS TIME. V/S STABLE CALL LIGHT IN REACH
[2024-10-13 23:00] VITALS: BP 136/76
[2024-10-14] VITALS (9 sets, daily range): BP systolic 91–157; BP diastolic 63–90
--- NOTE | 2024-10-14 | NUR ---
PT RESTING. NO COMPLAINTS. V/S STABLE, CALL LIGHT IN REACH
--- NOTE | 2024-10-14 02:00 | NUR ---
PT HAS HEADACHE, NO CHANGE IN STATUS NOTED. SNACKS AND FLUIDS PROVIDED. V/S STABLE, CALL LIGHT IN REACH
[2024-10-14 05:36] LABS: BASO% 1.1 % (0-3); EOS% 16.3 % (0-8); HEMATOCRIT 44.9 % (37.0-47.0); HEMOGLOBIN 13.8 g/dl (12.0-16.0); IMMATURE GRANULOCYTES 0.4 % (0.0-5.0); LYMPH% 36.9 % (15-41); MEAN CELL VOLUME 106.9 fL CALC (80.0-100.0); MEAN CORPUSCULAR HGB 32.9 pG CALC (26.0-32.0); MEAN CORPUSCULAR HGB CONC 30.7 g/dL CAL (32.0-36.0); MONO% 8.4 % (2-13); NEUT# 4.02 thou/uL (2.00-7.15); NEUT% 36.9 % (42-76); RED BLOOD COUNT 4.2 mill/uL (4.20-5.60); RED CELL DISTRI WIDTH 14.3 % (11.5-15.5)
[2024-10-14 05:55] LABS: ALBUMIN 4.1 g/dL (3.2-5.0); CREATININE 0.8 mg/dL (0.5-1.0); MAGNESIUM 2.3 mg/dL (1.6-2.3); TOTAL PROTEIN 6.8 g/dL (6.3-8.2)
[2024-10-14 06:00] LABS: BILIRUBIN, TOTAL 0.4 mg/dL (0.02-1.3); POTASSIUM 4.9 mmol/l (3.5-5.1)
--- NOTE | 2024-10-14 06:00 | NUR ---
PT DID NOT COMPLAIN OF HEADACHE, BUT REUESTED FOOD. SNACKS FROM NUTRITION ROOM PROVIDED, WELL FLUIDS. ENCOURAGED INTAKE OF WATER. NO CHANGES NOTED. V/S STABLE, CALL LIGHT IN REACH
--- NOTE | 2024-10-14 07:57 | NUR ---
PT IS SITTING UP IN BED EATING BREAKFAST. CALL LIGHT IN REACH.
[2024-10-14] MEDS ORDERED: LORazepam 0.5 MG/TAB PO SCH (08:30)
[2024-10-14] MEDS ORDERED: ASPIRIN 81 MG/TAB PO SCH (09:00)
[2024-10-14] MEDS ORDERED: RIVAROXABAN 20 MG TAB PO SCH (09:00)
[2024-10-14] MEDS ORDERED: ATORVASTATIN CALCIUM 40 MG/TAB PO SCH (09:00)
--- NOTE | 2024-10-14 10:16 | NUR ---
PT IS IN BED WATCHING TV. CALL LIGHT IN REACH.
--- NOTE | 2024-10-14 12:17 | NUR ---
PT IS RESTING IN BED. EVEN AND UNLABORED RESPIRATIONS. CALL LIGHT IN REACH.
--- NOTE | 2024-10-14 13:17 | NUR ---
Discharge instructions given. Patient verbalizes understanding of same. Discharged in stable condition via Wheelchair to Home with staff. All belongings sent with pt. IV REMOVED.
--- NOTE | 2024-10-16 13:39 | NUR ---
Dischargee follow up call completed 10/16/24. Patient states she is still experiencing headaches and partial blindness. Patient states she was prescrivbed no new medications at discharge. Patient says she is out of all of her routine medications and needs refills. Explained to patient she should contact her PCP to get refills submitted to pharmacy. She said she would do this and also made a follow up appointment with her PCP at the same time. No needs or concerns verbalized by patient at this time.
== END 2024-10-14 13:20 | disposition home or self-care (01) | DRG 103 ==
LOC: ED 10:55 → ED-I 14:40 → ED 14:57 → ICU 14:57
PROVIDERS: Family Medicine; Nurse Practitioner Family; ADMIT Internal Medicine; ATTEND Internal Medicine
DX: G43.009 Migraine without aura, not intractable, without status migrainosus (principal); I10 Essential (primary) hypertension; J43.9 Emphysema, unspecified; I25.10 Atherosclerotic heart disease of native coronary artery without angina pectoris; I25.2 Old myocardial infarction; F31.9 Bipolar disorder, unspecified; F17.210 Nicotine dependence, cigarettes, uncomplicated; F20.9 Schizophrenia, unspecified; F19.10 Other psychoactive substance abuse, uncomplicated; Z86.718 Personal history of other venous thrombosis and embolism; Z79.01 Long term (current) use of anticoagulants
CPT/HCPCS: J0780; J1200; Q9967